=== PATIENT | female | born 1955 | race Caucasian/White ===

== ENCOUNTER 2017-09-12 18:44 | Emergency (ER) | payer MEDICAID ==
[~2017-09-12] VITALS: Ht 154.9 cm; Wt 45.6 kg
[~2017-09-12 18:44] MED LIST: ALBU18HF2 INH; CALC-336 PO; DEP5I IM; DIAZ10TA PO; DIPH25CA83 PO; DOCU100C41 PO; IBUP-1986 PO; LEVO75TA PO; MECL-111 PO; ONDA4TAB6 PO; OXYB5TAB11 PO; PANT-47 PO; PHEN30TA41 PO; POTA8TAB8 PO; TOPI100T18 PO; TRAZ-146 PO; VENL-191 PO
[2017-09-12] MEDS ORDERED: ondansetron/PF 4mg/2ml inj IV ONE (19:50)
[2017-09-12] MEDS ORDERED: normal saline 1000ml 1,000 ML IV ONE (19:50)
[2017-09-12 20:43] LABS: BASOPHILS % (AUTO) 0.3 % (0-1); EOSINOPHILS # (AUTO) 0.2 X10'3 (0-0.9); EOSINOPHILS % (AUTO) 1.9 % (0-6); HEMATOCRIT 41.5 % (35.0-45.0); HEMOGLOBIN 13.9 g/dl (12.0-16.0); LYMPHOCYTES # (AUTO) 2.2 X10'3 (1.1-4.8); LYMPHOCYTES % (AUTO) 25.7 % (21-51); MEAN CORPUSCULAR HGB CONC 33.4 % (33.0-36.5); MEAN CORPUSCULAR VOLUME 95.9 FL (78-98); MEAN PLATELET VOLUME 8.2 FL (7.4-10.4); MONOCYTES # (AUTO) 0.6 X10'3 (0-0.9); MONOCYTES % (AUTO) 7.1 % (2-12); NEUTROPHILS # (AUTO) 5.6 X10'3 (1.8-7.7); PLATELET COUNT 151 X10'3 (140-440); RED BLOOD COUNT 4.33 X10'6 (4.20-5.60); RED CELL DISTRIBUTION WIDTH 13.1 % (11.5-14.5); WHITE BLOOD COUNT 8.7 X10'3 (4.5-11.0)
[2017-09-12 20:54] LABS: PROTHROMBIN TIME 9.9 SECONDS (9.0-12.0)
[2017-09-12] MEDS ORDERED: potassium Cl 20mEq in D5-NS 1,000 ML IV ONE (20:55)
[2017-09-12 21:03] LABS: ALANINE AMINOTRANSFERASE 31 U/L (12-78); ALBUMIN 3.9 G/DL (3.4-5.0); ALKALINE PHOSPHATASE 76 IU/L (46-116); ANION GAP 9 (8-16); ASPARTATE AMINO TRANSFERASE 27 U/L (10-37); BILIRUBIN,TOTAL 0.3 MG/DL (0.1-1.0); BLOOD UREA NITROGEN 15 MG/DL (7-18); BUN/CREATININE RATIO 17.6 (6.6-38.0); CHLORIDE 106 MMOL/L (99-107); CREATININE 0.85 MG/DL (0.40-0.90); GLUCOSE 79 MG/DL (70-104); POTASSIUM 3.8 MMOL/L (3.5-5.1); SODIUM 142 MMOL/L (135-145); TOTAL CARBON DIOXIDE 27.3 MMOL/L (24-32); TOTAL PROTEIN 7.8 G/DL (6.4-8.2); TROPONIN I < 0.04 NG/ML (0.0-0.05); eGFR 67 ML/MIN
[2017-09-12 21:04] LABS: CALCIUM 8.8 MG/DL (8.5-10.1)
[2017-09-12] MEDS ORDERED: ketorolac trometh. 30mg/ml inj. IV ONE (21:10)
[2017-09-12] MEDS ORDERED: METO5TAB98 PO (21:23)
[2017-09-12 21:59] VITALS: BP 94/56
== END 2017-09-12 22:01 | disposition home or self-care (01) ==
LOC: ER 18:45
DX: R11.2 Nausea with vomiting, unspecified (principal); R19.7 Diarrhea, unspecified; G89.29 Other chronic pain; J45.909 Unspecified asthma, uncomplicated; G43.909 Migraine, unspecified, not intractable, without status migrainosus; Z90.49 Acquired absence of other specified parts of digestive tract; Z90.710 Acquired absence of both cervix and uterus; Z98.890 Other specified postprocedural states; Z88.1 Allergy status to other antibiotic agents; Z88.6 Allergy status to analgesic agent; Z88.8 Allergy status to other drugs, medicaments and biological substances; Z79.899 Other long term (current) drug therapy; Z91.048 Other nonmedicinal substance allergy status
CPT/HCPCS: 36415; 80053; 84484; 85025; 85610; 93005; 96361; 96374; 96375; 99285; J1885; J2405; J3480; J7030

== ENCOUNTER → 2017-09-26 | Emergency (ER) | payer MEDICAID ==
[~2017-09-26] VITALS: Ht 154.9 cm; Wt 40.0 kg
[~2017-09-26] MED LIST changes: +HYDROmorphone 1 mg/ml syringe IM ONE; +METO5TAB98 PO
[2017-09-26 15:25] VITALS: BP 104/61
== END | disposition home or self-care (01) ==
LOC: ER 13:05
DX: G89.29 Other chronic pain (principal); M54.5 Low back pain; J45.909 Unspecified asthma, uncomplicated; G43.909 Migraine, unspecified, not intractable, without status migrainosus; M19.90 Unspecified osteoarthritis, unspecified site; Z90.49 Acquired absence of other specified parts of digestive tract; Z90.710 Acquired absence of both cervix and uterus; Z98.890 Other specified postprocedural states; Z88.1 Allergy status to other antibiotic agents; Z88.6 Allergy status to analgesic agent; Z88.8 Allergy status to other drugs, medicaments and biological substances; Z79.899 Other long term (current) drug therapy
CPT/HCPCS: 96372; 99284; J1170

== ENCOUNTER 2018-02-11 22:42 | Emergency (ER) | payer MEDICAID ==
[~2018-02-11] VITALS: Ht 154.9 cm; Wt 46.5 kg
[~2018-02-11 22:42] MED LIST changes: -HYDROmorphone 1 mg/ml syringe IM ONE; -METO5TAB98 PO
[2018-02-11] MEDS ORDERED: morphine 4 MG/ML inj SYRINge IV ONE (22:55)
[2018-02-11] MEDS ORDERED: ondansetron/PF 4mg/2ml inj IV ONE (22:55)
[2018-02-11] MEDS ORDERED: normal saline 1000ml 1,000 ML IV ONE (22:55)
[2018-02-11 23:41] LABS: BASOPHILS % (AUTO) 0.6 % (0-1); EOSINOPHILS # (AUTO) 0.1 X10'3 (0-0.9); EOSINOPHILS % (AUTO) 1.2 % (0-6); HEMATOCRIT 34.1 % (35.0-45.0); HEMOGLOBIN 11.7 g/dl (12.0-16.0); LYMPHOCYTES # (AUTO) 1.6 X10'3 (1.1-4.8); LYMPHOCYTES % (AUTO) 23.7 % (21-51); MEAN CORPUSCULAR HEMOGLOBIN 31.7 PG (27.0-31.0); MEAN CORPUSCULAR HGB CONC 34.3 % (33.0-36.5); MEAN CORPUSCULAR VOLUME 92.4 FL (78-98); MEAN PLATELET VOLUME 7.6 FL (7.4-10.4); MONOCYTES # (AUTO) 0.4 X10'3 (0-0.9); MONOCYTES % (AUTO) 5.8 % (2-12); NEUTROPHILS # (AUTO) 4.8 X10'3 (1.8-7.7); NEUTROPHILS % (AUTO) 68.7 % (42-75); PLATELET COUNT 156 X10'3 (140-440); RED BLOOD COUNT 3.69 X10'6 (4.20-5.60); RED CELL DISTRIBUTION WIDTH 12.6 % (11.5-14.5); WHITE BLOOD COUNT 6.9 X10'3 (4.5-11.0)
[2018-02-11 23:55] LABS: ALANINE AMINOTRANSFERASE 30 U/L (12-78); ALBUMIN 3.4 G/DL (3.4-5.0); ALBUMIN/GLOBULIN RATIO 0.9 (1.1-1.5); ALKALINE PHOSPHATASE 75 IU/L (46-116); AMYLASE 44 U/L (25-115); ANION GAP 9 (8-16); ASPARTATE AMINO TRANSFERASE 20 U/L (10-37); BILIRUBIN,TOTAL 0.3 MG/DL (0.1-1.0); BLOOD UREA NITROGEN 19 MG/DL (7-18); BUN/CREATININE RATIO 20.9 (6.6-38.0); CALCIUM 8.4 MG/DL (8.5-10.1); CHLORIDE 102 MMOL/L (99-107); CREATININE 0.91 MG/DL (0.40-0.90); GLUCOSE 82 MG/DL (70-104); LIPASE 108 U/L (73-393); POTASSIUM 3.5 MMOL/L (3.5-5.1); SODIUM 139 MMOL/L (135-145); TOTAL PROTEIN 7.4 G/DL (6.4-8.2); eGFR 62 ML/MIN
[2018-02-12 01:01] LABS: CLARITY,URINE SLIGHTLY CLOUDY (Clear); COLOR,URINE YELLOW (Yellow); GLUCOSE, URINE NEGATIVE (Neg); KETONES,URINE NEGATIVE (Neg); LEUKOCYTE ESTERASE ,URINE TRACE (Neg); NITRITES, URINE POSITIVE (Neg); OCCULT BLOOD,URINE NEGATIVE (Neg); PH,URINE 6.5 (4.8-8.0); PROTEIN,URINE NEGATIVE (Neg); UROBILINOGEN,URINE 0.2 E.U/dL (0.2-1.0)
[2018-02-12 01:08] LABS: BACTERIA,URINE 4+ /HPF (Neg); SQUAMOUS EPITHELIAL CELL,UR MODERATE /LPF (FEW); UA COLLECTION TYPE STRAIGHT CATH
[2018-02-12 01:09] LABS: RBC,URINE NONE SEEN /HPF (0-2)
[2018-02-12] MEDS ORDERED: CIPR-259 PO (01:44)
[2018-02-12] MEDS ORDERED: HYDROcodone/acetaminophen 10/325mg tab PO ONE (01:45)
[2018-02-12 01:54] VITALS: BP 106/57
== END 2018-02-12 01:59 | disposition home or self-care (01) ==
LOC: ER 22:42
DX: N39.0 Urinary tract infection, site not specified (principal); G43.909 Migraine, unspecified, not intractable, without status migrainosus; J45.909 Unspecified asthma, uncomplicated; M19.90 Unspecified osteoarthritis, unspecified site; G89.29 Other chronic pain; Z90.49 Acquired absence of other specified parts of digestive tract; Z90.710 Acquired absence of both cervix and uterus; Z98.890 Other specified postprocedural states; Z88.1 Allergy status to other antibiotic agents; Z88.8 Allergy status to other drugs, medicaments and biological substances; Z79.899 Other long term (current) drug therapy
CPT/HCPCS: 36415; 80053; 81001; 82150; 83690; 85025; 85610; 85651; 87088; 96361; 96374; 96375; 99284; J2270; J2405; 87077; 87186

== ENCOUNTER 2018-03-15 14:49 | Emergency (ER) | payer MEDICAID ==
[~2018-03-15] VITALS: Ht 154.9 cm; Wt 45.5 kg
[2018-03-15 15:17] VITALS: BP 137/70
== END 2018-03-15 16:58 | disposition home or self-care (01) ==
LOC: ER 14:50
DX: G89.29 Other chronic pain (principal); M54.2 Cervicalgia; G43.909 Migraine, unspecified, not intractable, without status migrainosus; J45.909 Unspecified asthma, uncomplicated; M19.90 Unspecified osteoarthritis, unspecified site; M79.7 Fibromyalgia; Z90.49 Acquired absence of other specified parts of digestive tract; Z90.710 Acquired absence of both cervix and uterus; Z98.51 Tubal ligation status; Z98.890 Other specified postprocedural states; Z88.1 Allergy status to other antibiotic agents; Z88.8 Allergy status to other drugs, medicaments and biological substances; Z88.6 Allergy status to analgesic agent; Z79.899 Other long term (current) drug therapy
CPT/HCPCS: 99284

== ENCOUNTER 2018-08-06 13:51 | Emergency (ER) | payer MEDICARE, MEDICAID ==
[~2018-08-06] VITALS: Ht 154.9 cm; Wt 46.1 kg
[~2018-08-06 13:51] MED LIST changes: +CLON-528 PO; -DIAZ10TA PO; -IBUP-1986 PO; +MORP30TA PO; -ONDA4TAB6 PO; -TRAZ-146 PO; +TRAZ-219 PO
[2018-08-06 14:34] LABS: BASOPHILS % (AUTO) 0.3 % (0-1); EOSINOPHILS # (AUTO) 0.1 X10'3 (0-0.9); EOSINOPHILS % (AUTO) 1.1 % (0-6); HEMATOCRIT 36.3 % (35.0-45.0); HEMOGLOBIN 12.3 g/dl (12.0-16.0); LYMPHOCYTES # (AUTO) 1.7 X10'3 (1.1-4.8); LYMPHOCYTES % (AUTO) 23.7 % (21-51); MEAN CORPUSCULAR HEMOGLOBIN 31.9 PG (27.0-31.0); MEAN CORPUSCULAR HGB CONC 33.8 % (33.0-36.5); MEAN CORPUSCULAR VOLUME 94.6 FL (78-98); MEAN PLATELET VOLUME 7.5 FL (7.4-10.4); MONOCYTES # (AUTO) 0.4 X10'3 (0-0.9); MONOCYTES % (AUTO) 6.2 % (2-12); NEUTROPHILS % (AUTO) 68.7 % (42-75); PLATELET COUNT 208 X10'3 (140-440); RED BLOOD COUNT 3.84 X10'6 (4.20-5.60); RED CELL DISTRIBUTION WIDTH 13.6 % (11.5-14.5); WHITE BLOOD COUNT 7.2 X10'3 (4.5-11.0)
[2018-08-06 14:50] LABS: ALANINE AMINOTRANSFERASE 33 U/L (12-78); ALBUMIN 3.7 G/DL (3.4-5.0); ALBUMIN/GLOBULIN RATIO 0.9 (1.1-1.5); ALKALINE PHOSPHATASE 102 IU/L (46-116); ANION GAP 12 (8-16); ASPARTATE AMINO TRANSFERASE 20 U/L (10-37); BILIRUBIN,TOTAL 0.2 MG/DL (0.1-1.0); BLOOD UREA NITROGEN 14 MG/DL (7-18); BUN/CREATININE RATIO 16.1 (6.6-38.0); CALCIUM 8.8 MG/DL (8.5-10.1); CHLORIDE 105 MMOL/L (99-107); CREATININE 0.87 MG/DL (0.40-0.90); GLUCOSE 84 MG/DL (70-104); LIPASE 124 U/L (73-393); POTASSIUM 3.6 MMOL/L (3.5-5.1); SODIUM 142 MMOL/L (135-145); TOTAL CARBON DIOXIDE 25.3 MMOL/L (24-32); TOTAL PROTEIN 7.8 G/DL (6.4-8.2); eGFR 65 ML/MIN
[2018-08-06] MEDS ORDERED: normal saline 1000ML IV soln IVB ONE (16:25)
[2018-08-06] MEDS ORDERED: pantoprazole 40 MG vial IV ONE (16:25)
[2018-08-06] MEDS ORDERED: ondansetron/PF 4mg/2ml inj IV ONE (16:25)
[2018-08-06] MEDS ORDERED: famotidine/PF 10 mg/ml inj IV ONE (16:25)
[2018-08-06] MEDS ORDERED: ketorolac trometh. 30mg/ml inj. IV ONE (18:05)
[2018-08-06] MEDS ORDERED: morphine 4 MG/ML inj SYRINge IV ONE (18:05)
[2018-08-06] MEDS ORDERED: ONDA8TAB9 PO (18:22)
[2018-08-06 18:29] VITALS: BP 130/65
[2018-08-06] MEDS ORDERED: mag hydrox/Alum hydrox/simeth 30ml oral suspension PO ONE (18:30)
[2018-08-06 19:29] LABS: CLARITY,URINE CLEAR (Clear); COLOR,URINE YELLOW (Yellow); GLUCOSE, URINE NEGATIVE (Neg); KETONES,URINE NEGATIVE (Neg); LEUKOCYTE ESTERASE ,URINE NEGATIVE (Neg); NITRITES, URINE NEGATIVE (Neg); OCCULT BLOOD,URINE NEGATIVE (Neg); PROTEIN,URINE NEGATIVE (Neg); UA COLLECTION TYPE CLN CATCH MIDSTREAM; UROBILINOGEN,URINE 0.2 E.U/dL (0.2-1.0)
== END 2018-08-07 | disposition home or self-care (01) ==
LOC: ER 13:52
DX: K52.9 Noninfective gastroenteritis and colitis, unspecified (principal); G43.909 Migraine, unspecified, not intractable, without status migrainosus; J44.9 Chronic obstructive pulmonary disease, unspecified; M19.90 Unspecified osteoarthritis, unspecified site; G89.29 Other chronic pain; Z90.49 Acquired absence of other specified parts of digestive tract; Z90.710 Acquired absence of both cervix and uterus; Z98.890 Other specified postprocedural states; Z90.89 Acquired absence of other organs; Z98.51 Tubal ligation status; Z88.1 Allergy status to other antibiotic agents; Z88.6 Allergy status to analgesic agent; Z88.8 Allergy status to other drugs, medicaments and biological substances; Z79.2 Long term (current) use of antibiotics; Z79.899 Other long term (current) drug therapy
CPT/HCPCS: 36415; 74176; 80053; 81003; 83690; 85025; 85610; 96361; 96374; 96375; 99284; C9113; J1885; J2270; J2405; J3490; J7030

== ENCOUNTER 2018-09-04 17:10 | Emergency (ER) | payer MEDICARE, MEDICAID ==
[~2018-09-04] VITALS: Ht 154.9 cm; Wt 41.8 kg
[~2018-09-04 17:10] MED LIST changes: +ONDA8TAB9 PO
[2018-09-04 18:09] LABS: BASOPHILS % (AUTO) 0.4 % (0-1); EOSINOPHILS # (AUTO) 0.2 X10'3 (0-0.9); EOSINOPHILS % (AUTO) 2.6 % (0-6); HEMATOCRIT 39.1 % (35.0-45.0); HEMOGLOBIN 12.8 g/dl (12.0-16.0); LYMPHOCYTES % (AUTO) 32.9 % (21-51); MEAN CORPUSCULAR HEMOGLOBIN 31.4 PG (27.0-31.0); MEAN CORPUSCULAR HGB CONC 32.7 % (33.0-36.5); MEAN PLATELET VOLUME 7.8 FL (7.4-10.4); MONOCYTES # (AUTO) 0.3 X10'3 (0-0.9); MONOCYTES % (AUTO) 4.5 % (2-12); NEUTROPHILS # (AUTO) 3.5 X10'3 (1.8-7.7); NEUTROPHILS % (AUTO) 59.6 % (42-75); PLATELET COUNT 161 X10'3 (140-440); RED BLOOD COUNT 4.07 X10'6 (4.20-5.60); RED CELL DISTRIBUTION WIDTH 12.3 % (11.5-14.5)
[2018-09-04 18:31] LABS: ALANINE AMINOTRANSFERASE 32 U/L (12-78); ALBUMIN 3.6 G/DL (3.4-5.0); ALBUMIN/GLOBULIN RATIO 0.9 (1.1-1.5); ALKALINE PHOSPHATASE 87 IU/L (46-116); ANION GAP 9 (8-16); ASPARTATE AMINO TRANSFERASE 19 U/L (10-37); BILIRUBIN,TOTAL 0.2 MG/DL (0.1-1.0); BLOOD UREA NITROGEN 16 MG/DL (7-18); BUN/CREATININE RATIO 21.1 (6.6-38.0); CALCIUM 8.6 MG/DL (8.5-10.1); CHLORIDE 106 MMOL/L (99-107); CREATININE 0.76 MG/DL (0.40-0.90); GLUCOSE 76 MG/DL (70-104); LIPASE 140 U/L (73-393); POTASSIUM 4.1 MMOL/L (3.5-5.1); SODIUM 142 MMOL/L (135-145); TOTAL CARBON DIOXIDE 26.8 MMOL/L (24-32); TOTAL PROTEIN 7.7 G/DL (6.4-8.2); eGFR 76 ML/MIN
[2018-09-04 18:40] LABS: CLARITY,URINE SLIGHTLY CLOUDY (Clear); COLOR,URINE YELLOW (Yellow); GLUCOSE, URINE NEGATIVE (Neg); KETONES,URINE NEGATIVE (Neg); LEUKOCYTE ESTERASE ,URINE NEGATIVE (Neg); NITRITES, URINE NEGATIVE (Neg); OCCULT BLOOD,URINE NEGATIVE (Neg); PROTEIN,URINE NEGATIVE (Neg); UROBILINOGEN,URINE 0.2 E.U/dL (0.2-1.0)
[2018-09-04 18:43] LABS: UA COLLECTION TYPE STRAIGHT CATH
[2018-09-04 19:00] LABS: MUCUS STRANDS MODERATE /LPF (Neg); RBC,URINE 0-2 /HPF (0-2); SQUAMOUS EPITHELIAL CELL,UR MANY /LPF (FEW); WBC,URINE 0-4 /HPF (0-4)
[2018-09-04 19:03] LABS: AMORPHOUS URATES 1+; BACTERIA,URINE FEW /HPF (Neg)
[2018-09-04] MEDS ORDERED: normal saline 1000ML IV soln IVB ONE (19:15)
[2018-09-04 19:38] LABS: TROPONIN I < 0.04 NG/ML (0.0-0.05)
[2018-09-04] MEDS ORDERED: acetaminophen 325mg tablet PO ONE (20:55)
[2018-09-04 21:17] VITALS: BP 108/57
--- NOTE | 2018-09-04 21:43 | NUR ---
PT PAYING FOR A CAB TO TAKE HER HOME. [employer] CALLED AND PT NOW INI LOBBY WAITING
== END 2018-09-04 21:53 | disposition home or self-care (01) ==
LOC: ER 17:10
DX: M79.604 Pain in right leg (principal); M79.605 Pain in left leg; R11.10 Vomiting, unspecified; G43.909 Migraine, unspecified, not intractable, without status migrainosus; J44.9 Chronic obstructive pulmonary disease, unspecified; M19.90 Unspecified osteoarthritis, unspecified site; G89.29 Other chronic pain; Z90.49 Acquired absence of other specified parts of digestive tract; Z90.710 Acquired absence of both cervix and uterus; Z98.890 Other specified postprocedural states; Z90.89 Acquired absence of other organs; Z98.51 Tubal ligation status; Z88.1 Allergy status to other antibiotic agents; Z88.6 Allergy status to analgesic agent; Z88.8 Allergy status to other drugs, medicaments and biological substances; Z79.899 Other long term (current) drug therapy; W19.XXXA Unspecified fall, initial encounter; Y93.89 Activity, other specified; Y92.89 Other specified places as the place of occurrence of the external cause; Y99.8 Other external cause status
CPT/HCPCS: 36415; 80053; 81001; 83690; 83735; 84484; 85025; 96360; 99283; J7030; P9612

== ENCOUNTER 2019-01-27 21:01 | Emergency (ER) | payer MEDICARE, MEDICAID ==
[~2019-01-27] VITALS: Ht 154.9 cm; Wt 44.5 kg
[~2019-01-27 21:01] MED LIST changes: +LOPE2TAB25 PO; +TOP100T PO; -TOPI100T18 PO
[2019-01-27 23:06] LABS: BASOPHILS % (AUTO) 0.6 % (0-1); EOSINOPHILS # (AUTO) 0.2 X10'3 (0-0.9); EOSINOPHILS % (AUTO) 2.5 % (0-6); HEMATOCRIT 35.9 % (35.0-45.0); HEMOGLOBIN 12.4 g/dl (12.0-16.0); LYMPHOCYTES # (AUTO) 1.7 X10'3 (1.1-4.8); LYMPHOCYTES % (AUTO) 24.4 % (21-51); MEAN CORPUSCULAR HEMOGLOBIN 32.6 PG (27.0-31.0); MEAN CORPUSCULAR HGB CONC 34.5 g/dL (33.0-36.5); MEAN CORPUSCULAR VOLUME 94.4 FL (78-98); MEAN PLATELET VOLUME 7.8 FL (7.4-10.4); MONOCYTES # (AUTO) 0.5 X10'3 (0-0.9); MONOCYTES % (AUTO) 7.3 % (2-12); NEUTROPHILS # (AUTO) 4.5 X10'3 (1.8-7.7); NEUTROPHILS % (AUTO) 65.2 % (42-75); PLATELET COUNT 174 X10'3 (140-440); RED BLOOD COUNT 3.81 X10'6 (4.20-5.60); RED CELL DISTRIBUTION WIDTH 12.6 % (11.5-14.5); WHITE BLOOD COUNT 6.9 X10'3 (4.5-11.0)
[2019-01-27 23:20] LABS: ALANINE AMINOTRANSFERASE 27 U/L (12-78); ALBUMIN 3.2 G/DL (3.4-5.0); ALBUMIN/GLOBULIN RATIO 0.9 (1.1-1.5); ALKALINE PHOSPHATASE 79 IU/L (46-116); ANION GAP 6 (8-16); ASPARTATE AMINO TRANSFERASE 21 U/L (10-37); BILIRUBIN,TOTAL 0.1 MG/DL (0.1-1.0); BLOOD UREA NITROGEN 17 MG/DL (7-18); BUN/CREATININE RATIO 20.2 (6.6-38.0); CALCIUM 8.4 MG/DL (8.5-10.1); CHLORIDE 107 MMOL/L (99-107); CREATININE 0.84 MG/DL (0.40-0.90); GLUCOSE 98 MG/DL (70-104); POTASSIUM 3.4 MMOL/L (3.5-5.1); SODIUM 140 MMOL/L (135-145); TOTAL CARBON DIOXIDE 26.6 MMOL/L (24-32); TOTAL PROTEIN 6.9 G/DL (6.4-8.2); eGFR 68 ML/MIN
[2019-01-27 23:59] VITALS: BP 137/84
== END 2019-01-28 00:01 | disposition home or self-care (01) ==
LOC: ER 21:03
DX: S00.83XA Contusion of other part of head, initial encounter (principal); G43.909 Migraine, unspecified, not intractable, without status migrainosus; J44.9 Chronic obstructive pulmonary disease, unspecified; M19.90 Unspecified osteoarthritis, unspecified site; G89.29 Other chronic pain; M79.7 Fibromyalgia; Z90.49 Acquired absence of other specified parts of digestive tract; Z90.710 Acquired absence of both cervix and uterus; Z98.890 Other specified postprocedural states; Z98.51 Tubal ligation status; Z88.1 Allergy status to other antibiotic agents; Z88.8 Allergy status to other drugs, medicaments and biological substances; Z88.6 Allergy status to analgesic agent; Z79.899 Other long term (current) drug therapy; W01.198A Fall on same level from slipping, tripping and stumbling with subsequent striking against other object, initial encounter; Y93.89 Activity, other specified; Y92.89 Other specified places as the place of occurrence of the external cause; Y99.9 Unspecified external cause status
CPT/HCPCS: 36415; 70450; 80053; 83880; 85025; 99284

== ENCOUNTER 2019-04-09 18:35 | Emergency (ER) | payer MEDICARE, MEDICAID ==
[~2019-04-09] VITALS: Ht 154.9 cm; Wt 47.7 kg
[~2019-04-09 18:35] MED LIST changes: -OXYB5TAB11 PO; +OXYB5TAB16 PO
[2019-04-09 19:10] LABS: BASOPHILS % (AUTO) 0.6 % (0-1); EOSINOPHILS # (AUTO) 0.1 X10'3 (0-0.9); EOSINOPHILS % (AUTO) 2.6 % (0-6); HEMATOCRIT 37.5 % (35.0-45.0); HEMOGLOBIN 12.8 g/dl (12.0-16.0); LYMPHOCYTES # (AUTO) 1.7 X10'3 (1.1-4.8); LYMPHOCYTES % (AUTO) 33.7 % (21-51); MEAN CORPUSCULAR HEMOGLOBIN 32.6 PG (27.0-31.0); MEAN PLATELET VOLUME 7.8 FL (7.4-10.4); MONOCYTES # (AUTO) 0.4 X10'3 (0-0.9); MONOCYTES % (AUTO) 7.9 % (2-12); NEUTROPHILS # (AUTO) 2.8 X10'3 (1.8-7.7); NEUTROPHILS % (AUTO) 55.2 % (42-75); PLATELET COUNT 148 X10'3 (140-440); RED BLOOD COUNT 3.91 X10'6 (4.20-5.60); WHITE BLOOD COUNT 5.1 X10'3 (4.5-11.0)
[2019-04-09 19:19] LABS: ALANINE AMINOTRANSFERASE 26 U/L (12-78); ALBUMIN 3.5 G/DL (3.4-5.0); ALBUMIN/GLOBULIN RATIO 0.9 (1.1-1.5); ALKALINE PHOSPHATASE 84 IU/L (46-116); ANION GAP 8 (8-16); ASPARTATE AMINO TRANSFERASE 15 U/L (10-37); BILIRUBIN,TOTAL 0.3 MG/DL (0.1-1.0); BLOOD UREA NITROGEN 22 MG/DL (7-18); BUN/CREATININE RATIO 22.7 (6.6-38.0); CALCIUM 8.7 MG/DL (8.5-10.1); CHLORIDE 106 MMOL/L (99-107); CREATININE 0.97 MG/DL (0.40-0.90); GLUCOSE 76 MG/DL (70-104); POTASSIUM 3.5 MMOL/L (3.5-5.1); SODIUM 142 MMOL/L (135-145); TOTAL CARBON DIOXIDE 28.2 MMOL/L (24-32); TOTAL PROTEIN 7.5 G/DL (6.4-8.2); eGFR 57 ML/MIN
[2019-04-09] MEDS ORDERED: LIDOcaine Viscous 15ml cup PO ONE (19:50)
[2019-04-09] MEDS ORDERED: normal saline 1000ML IV soln IVB ONE (19:50)
[2019-04-09] MEDS ORDERED: ondansetron 4mg rapidly disintigrating tab PO ONE (19:50)
[2019-04-09] MEDS ORDERED: mag hydrox/Alum hydrox/simeth 30ml oral suspension PO ONE (19:50)
--- NOTE | 2019-04-09 19:58 | NUR ---
pt is resting quietly on gurney, resp even and unlabored,
[2019-04-09] MEDS ORDERED: PROC25SU31 RC (20:30)
[2019-04-09 20:36] LABS: COLOR,URINE YELLOW (Yellow); GLUCOSE, URINE NEGATIVE (Neg); KETONES,URINE NEGATIVE (Neg); LEUKOCYTE ESTERASE ,URINE NEGATIVE (Neg); NITRITES, URINE NEGATIVE (Neg); OCCULT BLOOD,URINE NEGATIVE (Neg); PROTEIN,URINE NEGATIVE (Neg); UROBILINOGEN,URINE 0.2 E.U/dL (0.2-1.0)
[2019-04-09 20:42] LABS: UA COLLECTION TYPE CLN CATCH MIDSTREAM
[2019-04-09 20:45] LABS: CLARITY,URINE CLEAR (Clear)
--- NOTE | 2019-04-09 20:47 | NUR ---
PT IS RESTING QUIETLY, RECEIVING 1ST LITER NS W/O
[2019-04-09] MEDS ORDERED: HYDROcodone/acetaminophen 5mg/325mg tablet PO ONE (21:00)
--- NOTE | 2019-04-09 21:16 | NUR ---
PT REFUSED KAIDEN "THAT DOESN'T WORK FOR ME"
[2019-04-09 22:12] VITALS: BP 105/50
== END 2019-04-09 22:14 | disposition home or self-care (01) ==
LOC: ER 18:36
DX: R11.2 Nausea with vomiting, unspecified (principal); R10.13 Epigastric pain; G43.909 Migraine, unspecified, not intractable, without status migrainosus; J44.9 Chronic obstructive pulmonary disease, unspecified; E03.9 Hypothyroidism, unspecified; M19.90 Unspecified osteoarthritis, unspecified site; G89.29 Other chronic pain; F41.9 Anxiety disorder, unspecified; F32.9 Major depressive disorder, single episode, unspecified; Z90.49 Acquired absence of other specified parts of digestive tract; Z90.710 Acquired absence of both cervix and uterus; Z98.890 Other specified postprocedural states; Z98.51 Tubal ligation status; Z88.2 Allergy status to sulfonamides; Z88.8 Allergy status to other drugs, medicaments and biological substances; Z79.899 Other long term (current) drug therapy
CPT/HCPCS: 36415; 80053; 81003; 85025; 85610; 96360; 99284; J2405; J7030; 96372; 99283

== ENCOUNTER 2019-04-25 16:53 | Emergency (ER) | payer MEDICARE, MEDICAID ==
[~2019-04-25] VITALS: Ht 154.9 cm; Wt 46.0 kg
[2019-04-25] MEDS ORDERED: normal saline 1000ML IV soln IVB ONE (17:10)
[2019-04-25] MEDS ORDERED: diphenhydrAMINE 50 mg/ml inj IV ONE (17:10)
[2019-04-25] MEDS ORDERED: metoclopramide 5 mg/ml inj IV ONE (17:10)
[2019-04-25 17:23] LABS: BASOPHILS % (AUTO) 0.6 % (0-1); EOSINOPHILS # (AUTO) 0.1 X10'3 (0-0.9); EOSINOPHILS % (AUTO) 2.4 % (0-6); HEMATOCRIT 35.8 % (35.0-45.0); LYMPHOCYTES # (AUTO) 1.5 X10'3 (1.1-4.8); MEAN CORPUSCULAR HGB CONC 33.6 g/dL (33.0-36.5); MEAN CORPUSCULAR VOLUME 98.1 FL (78-98); MEAN PLATELET VOLUME 7.6 FL (7.4-10.4); MONOCYTES # (AUTO) 0.4 X10'3 (0-0.9); MONOCYTES % (AUTO) 8.6 % (2-12); NEUTROPHILS # (AUTO) 2.8 X10'3 (1.8-7.7); NEUTROPHILS % (AUTO) 57.4 % (42-75); PLATELET COUNT 181 X10'3 (140-440); RED BLOOD COUNT 3.65 X10'6 (4.20-5.60); RED CELL DISTRIBUTION WIDTH 13.1 % (11.5-14.5); WHITE BLOOD COUNT 4.9 X10'3 (4.5-11.0)
[2019-04-25 17:39] LABS: ALANINE AMINOTRANSFERASE 27 U/L (12-78); ALBUMIN 3.3 G/DL (3.4-5.0); ALBUMIN/GLOBULIN RATIO 0.9 (1.1-1.5); ALKALINE PHOSPHATASE 70 IU/L (46-116); ANION GAP 6 (8-16); ASPARTATE AMINO TRANSFERASE 17 U/L (10-37); BILIRUBIN,TOTAL 0.2 MG/DL (0.1-1.0); BLOOD UREA NITROGEN 18 MG/DL (7-18); BUN/CREATININE RATIO 19.4 (6.6-38.0); CALCIUM 8.4 MG/DL (8.5-10.1); CHLORIDE 109 MMOL/L (99-107); CREATININE 0.93 MG/DL (0.40-0.90); GLUCOSE 88 MG/DL (70-104); POTASSIUM 3.7 MMOL/L (3.5-5.1); SODIUM 145 MMOL/L (135-145); TOTAL CARBON DIOXIDE 29.9 MMOL/L (24-32); eGFR 60 ML/MIN
[2019-04-25 18:14] LABS: LIPASE 203 U/L (73-393)
[2019-04-25 19:00] LABS: CLARITY,URINE CLEAR (Clear); COLOR,URINE YELLOW (Yellow); GLUCOSE, URINE NEGATIVE (Neg); KETONES,URINE NEGATIVE (Neg); LEUKOCYTE ESTERASE ,URINE NEGATIVE (Neg); NITRITES, URINE NEGATIVE (Neg); OCCULT BLOOD,URINE NEGATIVE (Neg); PROTEIN,URINE NEGATIVE (Neg); UROBILINOGEN,URINE 0.2 E.U/dL (0.2-1.0)
[2019-04-25 19:02] LABS: UA COLLECTION TYPE VOIDED
[2019-04-25 19:03] LABS: URINE HCG NEGATIVE (NEG)
[2019-04-25] MEDS ORDERED: morphine 4 MG/ML inj SYRINge IV ONE (19:20)
[2019-04-25] MEDS ORDERED: ONDA4TAB12 PO (19:32)
--- NOTE | 2019-04-25 19:43 | NUR ---
updated ohlfs md of pt bp 100/51 and 8 mg morphine iv ordered. Ohlfs changed morphine from 8 mg to 4 gm.
[2019-04-25 19:45] VITALS: BP 100/51
== END 2019-04-25 20:14 | disposition home or self-care (01) ==
LOC: ER 16:53
DX: R10.32 Left lower quadrant pain (principal); G43.909 Migraine, unspecified, not intractable, without status migrainosus; J44.9 Chronic obstructive pulmonary disease, unspecified; E07.9 Disorder of thyroid, unspecified; M19.90 Unspecified osteoarthritis, unspecified site; G89.29 Other chronic pain; F41.9 Anxiety disorder, unspecified; F32.9 Major depressive disorder, single episode, unspecified; Z90.49 Acquired absence of other specified parts of digestive tract; Z90.710 Acquired absence of both cervix and uterus; Z98.890 Other specified postprocedural states; Z98.51 Tubal ligation status; Z88.1 Allergy status to other antibiotic agents; Z88.6 Allergy status to analgesic agent; Z88.8 Allergy status to other drugs, medicaments and biological substances; Z79.899 Other long term (current) drug therapy
CPT/HCPCS: 36415; 80053; 81003; 81025; 83690; 85025; 85610; 96361; 96374; 96375; 99283; J1200; J2270; J2765; J7030

== ENCOUNTER 2019-08-18 10:45 | Emergency (ER) | payer MEDICARE, MEDICAID ==
[~2019-08-18] VITALS: Ht 154.9 cm; Wt 45.9 kg
[~2019-08-18 10:45] MED LIST changes: +ONDA4TAB12 PO
[2019-08-18 11:27] LABS: EOSINOPHILS # (AUTO) 0.1 X10'3 (0-0.9); HEMOGLOBIN 13.8 g/dl (12.0-16.0); MONOCYTES # (AUTO) 0.5 X10'3 (0-0.9); NEUTROPHILS # (AUTO) 5.4 X10'3 (1.8-7.7)
[2019-08-18 11:29] LABS: BASOPHILS % (AUTO) 0.5 % (0-1); EOSINOPHILS % (AUTO) 1.5 % (0-6); LYMPHOCYTES # (AUTO) 1.7 X10'3 (1.1-4.8); LYMPHOCYTES % (AUTO) 22.1 % (21-51); MEAN CORPUSCULAR HEMOGLOBIN 33.4 PG (27.0-31.0); MEAN CORPUSCULAR HGB CONC 34.4 g/dL (33.0-36.5); MEAN CORPUSCULAR VOLUME 97.2 FL (78-98); MEAN PLATELET VOLUME 8.6 FL (7.4-10.4); MONOCYTES % (AUTO) 6.9 % (2-12); PLATELET COUNT 162 X10'3 (140-440); RED BLOOD COUNT 4.11 X10'6 (4.20-5.60); RED CELL DISTRIBUTION WIDTH 13.3 % (11.5-14.5); WHITE BLOOD COUNT 7.8 X10'3 (4.5-11.0)
[2019-08-18 11:34] LABS: ALANINE AMINOTRANSFERASE 129 U/L (12-78); ALBUMIN 3.6 G/DL (3.4-5.0); ALKALINE PHOSPHATASE 86 IU/L (46-116); ANION GAP 7 (8-16); ASPARTATE AMINO TRANSFERASE 275 U/L (10-37); BILIRUBIN,TOTAL 0.3 MG/DL (0.1-1.0); BLOOD UREA NITROGEN 13 MG/DL (7-18); BUN/CREATININE RATIO 15.5 (6.6-38.0); CALCIUM 8.7 MG/DL (8.5-10.1); CHLORIDE 108 MMOL/L (99-107); CREATININE 0.84 MG/DL (0.40-0.90); GLUCOSE 80 MG/DL (70-104); SODIUM 144 MMOL/L (135-145); TOTAL CARBON DIOXIDE 29.4 MMOL/L (24-32); TOTAL PROTEIN 7.3 G/DL (6.4-8.2); eGFR 68 ML/MIN
[2019-08-18 11:36] LABS: POTASSIUM 3.8 MMOL/L (3.5-5.1)
[2019-08-18] MEDS ORDERED: ondansetron/PF 4mg/2ml inj IV ONE (11:50)
[2019-08-18] MEDS ORDERED: normal saline 1000ML IV soln IVB ONE (11:50)
[2019-08-18 12:09] LABS: LIPASE 8328 U/L (73-393)
[2019-08-18] MEDS ORDERED: iohexol 300mg/ml 100ml inj. ONE (12:49)
[2019-08-18 13:49] LABS: CLARITY,URINE CLEAR (Clear); COLOR,URINE STRAW (Yellow); GLUCOSE, URINE NEGATIVE (Neg); KETONES,URINE NEGATIVE (Neg); LEUKOCYTE ESTERASE ,URINE NEGATIVE (Neg); NITRITES, URINE NEGATIVE (Neg); OCCULT BLOOD,URINE NEGATIVE (Neg); PROTEIN,URINE NEGATIVE (Neg); UA COLLECTION TYPE CLN CATCH MIDSTREAM; UROBILINOGEN,URINE 0.2 E.U/dL (0.2-1.0)
[2019-08-18] MEDS ORDERED: ONDA4TAB6 PO (14:14)
[2019-08-18] MEDS ORDERED: morphine 4 MG/ML inj SYRINge IV ONE (14:30)
[2019-08-18] MEDS ORDERED: HYDR-4383 PO (14:33)
[2019-08-18 14:48] VITALS: BP 112/76
[2019-08-18] MEDS ORDERED: OMEP40CA13 PO (14:55)
== END 2019-08-18 14:57 | disposition home or self-care (01) ==
LOC: ER 10:45
DX: K52.9 Noninfective gastroenteritis and colitis, unspecified (principal); G43.909 Migraine, unspecified, not intractable, without status migrainosus; J44.9 Chronic obstructive pulmonary disease, unspecified; M19.90 Unspecified osteoarthritis, unspecified site; G89.29 Other chronic pain; M79.7 Fibromyalgia; F41.9 Anxiety disorder, unspecified; F32.9 Major depressive disorder, single episode, unspecified; Z88.1 Allergy status to other antibiotic agents; Z88.8 Allergy status to other drugs, medicaments and biological substances; Z79.899 Other long term (current) drug therapy; Z91.030 Bee allergy status; Z87.19 Personal history of other diseases of the digestive system; Z90.49 Acquired absence of other specified parts of digestive tract; Z90.710 Acquired absence of both cervix and uterus; Z98.890 Other specified postprocedural states; Z90.89 Acquired absence of other organs; Z98.51 Tubal ligation status; Z87.442 Personal history of urinary calculi
CPT/HCPCS: 36415; 74177; 80053; 81003; 83690; 85025; 85610; 86709; 96361; 96374; 96375; 99284; J2270; J2405; J7030; Q9967

== ENCOUNTER 2019-10-08 19:43 | Emergency (ER) | payer MEDICARE, MEDICAID ==
[~2019-10-08] VITALS: Ht 154.9 cm; Wt 47.0 kg
[~2019-10-08 19:43] MED LIST changes: +HYDR-4383 PO; -MECL-111 PO; +MECL-159 PO; +ONDA4TAB6 PO; -TRAZ-219 PO; +TRAZ-256 PO
[2019-10-08 20:32] LABS: BASOPHILS % (AUTO) 0.4 % (0-1); EOSINOPHILS # (AUTO) 0.1 X10'3 (0-0.9); EOSINOPHILS % (AUTO) 1.6 % (0-6); HEMATOCRIT 38.9 % (35.0-45.0); HEMOGLOBIN 13.5 g/dl (12.0-16.0); LYMPHOCYTES # (AUTO) 1.4 X10'3 (1.1-4.8); LYMPHOCYTES % (AUTO) 18.9 % (21-51); MEAN CORPUSCULAR HEMOGLOBIN 33.2 PG (27.0-31.0); MEAN CORPUSCULAR HGB CONC 34.7 g/dL (33.0-36.5); MEAN CORPUSCULAR VOLUME 95.8 FL (78-98); MEAN PLATELET VOLUME 7.5 FL (7.4-10.4); MONOCYTES # (AUTO) 0.3 X10'3 (0-0.9); MONOCYTES % (AUTO) 4.6 % (2-12); NEUTROPHILS # (AUTO) 5.3 X10'3 (1.8-7.7); NEUTROPHILS % (AUTO) 74.5 % (42-75); PLATELET COUNT 179 X10'3 (140-440); RED BLOOD COUNT 4.07 X10'6 (4.20-5.60); RED CELL DISTRIBUTION WIDTH 12.9 % (11.5-14.5); WHITE BLOOD COUNT 7.2 X10'3 (4.5-11.0)
[2019-10-08 20:47] LABS: ALANINE AMINOTRANSFERASE 56 U/L (12-78); ALBUMIN 3.5 G/DL (3.4-5.0); ALBUMIN/GLOBULIN RATIO 0.9 (1.1-1.5); ALKALINE PHOSPHATASE 107 IU/L (46-116); ANION GAP 7 (8-16); ASPARTATE AMINO TRANSFERASE 116 U/L (10-37); BILIRUBIN,TOTAL 0.3 MG/DL (0.1-1.0); BLOOD UREA NITROGEN 20 MG/DL (7-18); BUN/CREATININE RATIO 21.7 (6.6-38.0); CALCIUM 8.2 MG/DL (8.5-10.1); CHLORIDE 108 MMOL/L (99-107); CREATININE 0.92 MG/DL (0.40-0.90); GLUCOSE 65 MG/DL (70-104); POTASSIUM 3.7 MMOL/L (3.5-5.1); SODIUM 142 MMOL/L (135-145); TOTAL CARBON DIOXIDE 27.5 MMOL/L (24-32); TOTAL PROTEIN 7.2 G/DL (6.4-8.2); eGFR 61 ML/MIN
[2019-10-08 21:19] LABS: LIPASE 1585 U/L (73-393)
[2019-10-08] MEDS ORDERED: dicyclomine 10mg/ml 2ml ampule IM ONE (21:50)
[2019-10-08] MEDS ORDERED: ondansetron 4mg rapidly disintigrating tab PO ONE (21:50)
[2019-10-08] MEDS ORDERED: oxyCODONE/APAP 10/325mg tablet PO ONE (22:15)
[2019-10-08] MEDS ORDERED: ONDA4TAB12 PO (22:53)
[2019-10-08] MEDS ORDERED: OXYC-138 PO (22:53)
[2019-10-08] MEDS ORDERED: DICY10CA88 PO (22:53)
[2019-10-08 23:14] VITALS: BP 124/71
== END 2019-10-08 23:15 | disposition home or self-care (01) ==
LOC: ER 19:44
DX: K85.90 Acute pancreatitis without necrosis or infection, unspecified (principal); G43.909 Migraine, unspecified, not intractable, without status migrainosus; J44.9 Chronic obstructive pulmonary disease, unspecified; M19.90 Unspecified osteoarthritis, unspecified site; M79.7 Fibromyalgia; F41.9 Anxiety disorder, unspecified; F32.9 Major depressive disorder, single episode, unspecified; Z86.69 Personal history of other diseases of the nervous system and sense organs; Z90.49 Acquired absence of other specified parts of digestive tract; Z90.710 Acquired absence of both cervix and uterus; Z98.51 Tubal ligation status; Z98.890 Other specified postprocedural states; Z88.1 Allergy status to other antibiotic agents; Z88.8 Allergy status to other drugs, medicaments and biological substances; Z79.899 Other long term (current) drug therapy
CPT/HCPCS: 36415; 80053; 83690; 85025; 96372; 99283; J0500

== ENCOUNTER 2019-10-28 15:34 | Emergency (ER) | payer MEDICARE, MEDICAID ==
[~2019-10-28] VITALS: Ht 154.9 cm; Wt 46.0 kg
[~2019-10-28 15:34] MED LIST changes: +DICY10CA88 PO; +OXYC-138 PO
[2019-10-28] MEDS ORDERED: normal saline 1000ML IV soln IVB ONE (15:55)
[2019-10-28] MEDS ORDERED: morphine 4 MG/ML inj SYRINge IV ONE ×2 (15:55→17:00)
[2019-10-28] MEDS ORDERED: VENL150T3 PO (16:11)
[2019-10-28] MEDS ORDERED: FURO-150 PO (16:11)
[2019-10-28] MEDS ORDERED: MIRA50TA PO (16:11)
[2019-10-28] MEDS ORDERED: CLON-513 PO (16:11)
[2019-10-28] MEDS ORDERED: DOCU250C15 PO (16:11)
[2019-10-28] MEDS ORDERED: OMEP20TA23 PO (16:11)
[2019-10-28] MEDS ORDERED: FLUT1DIS20 INH (16:16)
[2019-10-28 16:37] LABS: BASOPHILS % (AUTO) 0.7 % (0-1); EOSINOPHILS # (AUTO) 0.1 X10'3 (0-0.9); EOSINOPHILS % (AUTO) 1.6 % (0-6); HEMATOCRIT 37.6 % (35.0-45.0); HEMOGLOBIN 12.7 g/dl (12.0-16.0); LYMPHOCYTES # (AUTO) 1.4 X10'3 (1.1-4.8); LYMPHOCYTES % (AUTO) 26.1 % (21-51); MEAN CORPUSCULAR HEMOGLOBIN 32.6 PG (27.0-31.0); MEAN CORPUSCULAR HGB CONC 33.8 g/dL (33.0-36.5); MEAN CORPUSCULAR VOLUME 96.2 FL (78-98); MEAN PLATELET VOLUME 7.7 FL (7.4-10.4); MONOCYTES # (AUTO) 0.4 X10'3 (0-0.9); MONOCYTES % (AUTO) 6.9 % (2-12); NEUTROPHILS # (AUTO) 3.4 X10'3 (1.8-7.7); NEUTROPHILS % (AUTO) 64.7 % (42-75); PLATELET COUNT 156 X10'3 (140-440); RED CELL DISTRIBUTION WIDTH 12.6 % (11.5-14.5); WHITE BLOOD COUNT 5.3 X10'3 (4.5-11.0)
[2019-10-28 16:44] LABS: ALANINE AMINOTRANSFERASE 24 U/L (12-78); ALBUMIN 3.4 G/DL (3.4-5.0); ALBUMIN/GLOBULIN RATIO 0.9 (1.1-1.5); ALKALINE PHOSPHATASE 80 IU/L (46-116); ANION GAP 11 (8-16); ASPARTATE AMINO TRANSFERASE 18 U/L (10-37); BILIRUBIN,TOTAL 0.3 MG/DL (0.1-1.0); BLOOD UREA NITROGEN 19 MG/DL (7-18); BUN/CREATININE RATIO 20.4 (6.6-38.0); CALCIUM 8.6 MG/DL (8.5-10.1); CHLORIDE 106 MMOL/L (99-107); CREATININE 0.93 MG/DL (0.40-0.90); GLUCOSE 77 MG/DL (70-104); POTASSIUM 3.1 MMOL/L (3.5-5.1); SODIUM 144 MMOL/L (135-145); TOTAL CARBON DIOXIDE 27.5 MMOL/L (24-32); eGFR 60 ML/MIN
[2019-10-28 16:49] LABS: LIPASE 281 U/L (73-393); TROPONIN I < 0.04 NG/ML (0.0-0.05)
[2019-10-28] MEDS ORDERED: ketorolac trometh. 30mg/ml inj. IV ONE (17:00)
--- NOTE | 2019-10-28 17:35 | NUR ---
pt returns from ct
[2019-10-28] MEDS ORDERED: HYDROcodone/acetaminophen 10/325mg tab PO ONE (18:10)
[2019-10-28] MEDS ORDERED: HYDR-3965 PO (18:10)
--- NOTE | 2019-10-28 18:28 | NUR ---
PATIENT REFUSED NORCO, STATING THAT "IT DOES NOTHING FOR ME" AND "I WILL JUST TAKE MORPHINE WHEN I GET HOME"
[2019-10-28 18:38] VITALS: BP 107/55
== END 2019-10-28 18:39 | disposition home or self-care (01) ==
LOC: ER 15:34
DX: R10.84 Generalized abdominal pain (principal); G43.909 Migraine, unspecified, not intractable, without status migrainosus; J44.9 Chronic obstructive pulmonary disease, unspecified; M19.90 Unspecified osteoarthritis, unspecified site; G89.29 Other chronic pain; F41.9 Anxiety disorder, unspecified; F32.9 Major depressive disorder, single episode, unspecified; Z90.49 Acquired absence of other specified parts of digestive tract; Z86.69 Personal history of other diseases of the nervous system and sense organs; Z90.710 Acquired absence of both cervix and uterus; Z98.890 Other specified postprocedural states; Z90.89 Acquired absence of other organs; Z98.51 Tubal ligation status; Z79.2 Long term (current) use of antibiotics; Z88.6 Allergy status to analgesic agent; Z88.8 Allergy status to other drugs, medicaments and biological substances; Z79.899 Other long term (current) drug therapy
CPT/HCPCS: 36415; 71045; 74176; 80053; 83690; 84484; 85025; 93005; 96374; 96375; 96376; 99285; J1885; J2270; J7030

== ENCOUNTER 2019-12-22 13:30 | Emergency (ER) | payer MEDICARE, MEDICAID ==
[~2019-12-22] VITALS: Ht 154.9 cm; Wt 46.8 kg
[~2019-12-22 13:30] MED LIST changes: +CLON-513 PO; -CLON-528 PO; -DICY10CA88 PO; -DOCU100C41 PO; +DOCU250C15 PO; +FLUT1DIS20 INH; +FURO-150 PO; -HYDR-4383 PO; -LOPE2TAB25 PO; +MIRA50TA PO; +OMEP20TA23 PO; -ONDA4TAB12 PO; -ONDA4TAB6 PO; -ONDA8TAB9 PO; -OXYB5TAB16 PO; -OXYC-138 PO; -PANT-47 PO; -VENL-191 PO; +VENL150T3 PO
--- NOTE | 2019-12-22 13:41 | NUR ---
CARE GIVERS PHONE # [phone]; CALL FOR [facility]
--- NOTE | 2019-12-22 15:33 | NUR ---
I SPOKE WITH PATIENT AT BEDSIDE. SHE STATES THAT SHE LIVES ALONE, IN AN APARTMENT. SHE HAS [facility] HELPER, WHO COMES 3X A WEEK. SHE HAS A 4WW. SHE IS AGREEABLE TO RN, PT AND SW. I CALLED DEION AT [facility]. SHE IS ABLE TO OPEN PATIENT TOMORROW. I FAXED ATTESTATION AND CLINICAL INFORMATION TO [facility]. NOTIFIED RN AND PATIENT.
--- NOTE | 2019-12-22 15:35 | NUR ---
Spoke with Ute, pt's CG for transport; HAYDEN 15 m. Updated her on pt's DC POC including new orders for home health[facility], beginning tomorrow.
[2019-12-22 16:01] VITALS: BP 103/64
== END 2019-12-22 15:58 | disposition home or self-care (01) ==
LOC: ER 13:31
DX: M25.562 Pain in left knee (principal); M25.561 Pain in right knee; J44.9 Chronic obstructive pulmonary disease, unspecified; M19.90 Unspecified osteoarthritis, unspecified site; G89.29 Other chronic pain; F41.9 Anxiety disorder, unspecified; F32.9 Major depressive disorder, single episode, unspecified; Z86.69 Personal history of other diseases of the nervous system and sense organs; Z90.89 Acquired absence of other organs; Z90.49 Acquired absence of other specified parts of digestive tract; Z90.710 Acquired absence of both cervix and uterus; Z98.890 Other specified postprocedural states; Z98.51 Tubal ligation status; Z88.1 Allergy status to other antibiotic agents; Z88.8 Allergy status to other drugs, medicaments and biological substances; Z79.899 Other long term (current) drug therapy
CPT/HCPCS: 73560; 99284

== ENCOUNTER 2020-01-09 21:46 | Emergency (ER) | payer MEDICARE, MEDICAID ==
[~2020-01-09] VITALS: Ht 154.9 cm; Wt 47.7 kg
[2020-01-09 22:28] LABS: CLARITY,URINE SLIGHTLY CLOUDY (Clear); COLOR,URINE YELLOW (Yellow); GLUCOSE, URINE NEGATIVE (Neg); KETONES,URINE NEGATIVE (Neg); LEUKOCYTE ESTERASE ,URINE TRACE (Neg); NITRITES, URINE POSITIVE (Neg); OCCULT BLOOD,URINE NEGATIVE (Neg); PH,URINE 6.5 (4.8-8.0); PROTEIN,URINE NEGATIVE (Neg); UA COLLECTION TYPE CLN CATCH MIDSTREAM; UROBILINOGEN,URINE 0.2 E.U/dL (0.2-1.0)
[2020-01-09] MEDS ORDERED: ondansetron/PF 4mg/2ml inj IV ONE (22:35)
[2020-01-09] MEDS ORDERED: dextrose 5%-normal saline 1,000 ML IV ONE (22:35)
[2020-01-09 22:36] LABS: BACTERIA,URINE 4+ /HPF (Neg); HYALINE CASTS 0-3 /LPF (NEGATIVE)
[2020-01-09 22:37] LABS: RBC,URINE NONE SEEN /HPF (0-2); SQUAMOUS EPITHELIAL CELL,UR FEW /LPF (FEW); WBC,URINE 20-30 /HPF (0-4)
[2020-01-09 22:38] LABS: MUCUS STRANDS FEW /LPF (Neg)
[2020-01-09 23:38] LABS: BASOPHILS % (AUTO) 0.3 % (0-1); EOSINOPHILS # (AUTO) 0.2 X10'3 (0-0.9); EOSINOPHILS % (AUTO) 2.9 % (0-6); HEMATOCRIT 34.6 % (35.0-45.0); HEMOGLOBIN 11.5 g/dl (12.0-16.0); LYMPHOCYTES # (AUTO) 1.5 X10'3 (1.1-4.8); LYMPHOCYTES % (AUTO) 26.2 % (21-51); MEAN CORPUSCULAR HEMOGLOBIN 32.4 PG (27.0-31.0); MEAN CORPUSCULAR HGB CONC 33.2 g/dL (33.0-36.5); MEAN CORPUSCULAR VOLUME 97.4 FL (78-98); MEAN PLATELET VOLUME 7.5 FL (7.4-10.4); MONOCYTES # (AUTO) 0.4 X10'3 (0-0.9); NEUTROPHILS # (AUTO) 3.7 X10'3 (1.8-7.7); NEUTROPHILS % (AUTO) 63.6 % (42-75); PLATELET COUNT 151 X10'3 (140-440); RED BLOOD COUNT 3.56 X10'6 (4.20-5.60); RED CELL DISTRIBUTION WIDTH 13.3 % (11.5-14.5); WHITE BLOOD COUNT 5.7 X10'3 (4.5-11.0)
[2020-01-09] MEDS ORDERED: CefTRIAXone/D5W-Rocephin 1gm 50 ML IV ONE (23:45)
[2020-01-09 23:53] LABS: ALANINE AMINOTRANSFERASE 34 U/L (12-78); ALKALINE PHOSPHATASE 82 IU/L (46-116); ANION GAP 6 (8-16); ASPARTATE AMINO TRANSFERASE 43 U/L (10-37); BILIRUBIN,TOTAL 0.2 MG/DL (0.1-1.0); BLOOD UREA NITROGEN 17 MG/DL (7-18); BUN/CREATININE RATIO 19.1 (6.6-38.0); CALCIUM 8.1 MG/DL (8.5-10.1); CHLORIDE 110 MMOL/L (99-107); CREATININE 0.89 MG/DL (0.40-0.90); GLUCOSE 166 MG/DL (70-104); POTASSIUM 3.8 MMOL/L (3.5-5.1); SODIUM 144 MMOL/L (135-145); TOTAL CARBON DIOXIDE 27.6 MMOL/L (24-32); TOTAL PROTEIN 6.1 G/DL (6.4-8.2); eGFR 63 ML/MIN
[2020-01-09 23:56] LABS: TROPONIN I < 0.04 NG/ML (0.0-0.05)
[2020-01-10] MEDS ORDERED: CEPH250T PO (00:12)
[2020-01-10 01:24] VITALS: BP 118/39
== END 2020-01-10 00:46 | disposition home or self-care (01) ==
LOC: ER 21:47
DX: N39.0 Urinary tract infection, site not specified (principal); G89.29 Other chronic pain; R10.84 Generalized abdominal pain; R19.7 Diarrhea, unspecified; G43.909 Migraine, unspecified, not intractable, without status migrainosus; J44.9 Chronic obstructive pulmonary disease, unspecified; M19.90 Unspecified osteoarthritis, unspecified site; M79.7 Fibromyalgia; Z90.49 Acquired absence of other specified parts of digestive tract; Z90.710 Acquired absence of both cervix and uterus; Z98.890 Other specified postprocedural states; Z88.1 Allergy status to other antibiotic agents; Z88.8 Allergy status to other drugs, medicaments and biological substances; Z79.899 Other long term (current) drug therapy; W18.30XA Fall on same level, unspecified, initial encounter; Y93.89 Activity, other specified; Y92.099 Unspecified place in other non-institutional residence as the place of occurrence of the external cause; Y99.9 Unspecified external cause status
CPT/HCPCS: 36415; 70450; 71045; 72125; 80053; 81001; 84484; 85025; 87077; 87088; 87186; 93005; 96365; 96375; 99285; J0696; J2405; J7042

== ENCOUNTER 2020-02-19 23:25 | Emergency (ER) | payer MEDICARE, MEDICAID ==
[~2020-02-19] VITALS: Ht 154.9 cm; Wt 47.7 kg
[2020-02-20 00:37] LABS: PARTIAL THROMBOPLASTIN TIME 21 SECONDS (22-32)
[2020-02-20 00:44] LABS: BASOPHILS % (AUTO) 0.3 % (0-1); EOSINOPHILS # (AUTO) 0.1 X10'3 (0-0.9); EOSINOPHILS % (AUTO) 1.4 % (0-6); HEMATOCRIT 39.5 % (35.0-45.0); HEMOGLOBIN 13.3 g/dl (12.0-16.0); LYMPHOCYTES # (AUTO) 1.6 X10'3 (1.1-4.8); LYMPHOCYTES % (AUTO) 21.5 % (21-51); MEAN CORPUSCULAR HEMOGLOBIN 32.4 PG (27.0-31.0); MEAN CORPUSCULAR HGB CONC 33.6 g/dL (33.0-36.5); MEAN CORPUSCULAR VOLUME 96.5 FL (78-98); MEAN PLATELET VOLUME 7.8 FL (7.4-10.4); MONOCYTES # (AUTO) 0.5 X10'3 (0-0.9); MONOCYTES % (AUTO) 6.3 % (2-12); NEUTROPHILS # (AUTO) 5.4 X10'3 (1.8-7.7); NEUTROPHILS % (AUTO) 70.5 % (42-75); PLATELET COUNT 172 X10'3 (140-440); RED BLOOD COUNT 4.09 X10'6 (4.20-5.60); RED CELL DISTRIBUTION WIDTH 12.8 % (11.5-14.5); WHITE BLOOD COUNT 7.6 X10'3 (4.5-11.0)
[2020-02-20] MEDS ORDERED: normal saline 1000ML IV soln IVB ONE (01:00)
--- NOTE | 2020-02-20 01:03 | NUR ---
CHECKED ON THE PATIENT AND TOOK VS AND BP A LITTLE LOW AND HER SKIN IS CLAMMY AND SHE HAS EPIGASTRIC PAIN. SHE SAID SHE HAD THIS TYPE OF PAIN BEFORE AND HAS A HX OF PANCREATITIS AND LAST BOUT 4 MO AGO. INFORMED . HUNG 1 L OF NS ON PRESSURE BAG.
[2020-02-20 01:06] LABS: ALANINE AMINOTRANSFERASE 38 U/L (12-78); ALBUMIN 3.6 G/DL (3.4-5.0); ALKALINE PHOSPHATASE 89 IU/L (46-116); ANION GAP 8 (8-16); ASPARTATE AMINO TRANSFERASE 58 U/L (10-37); BILIRUBIN,TOTAL 0.3 MG/DL (0.1-1.0); BLOOD UREA NITROGEN 19 MG/DL (7-18); BUN/CREATININE RATIO 19.2 (6.6-38.0); CALCIUM 8.6 MG/DL (8.5-10.1); CHLORIDE 109 MMOL/L (99-107); CREATININE 0.99 MG/DL (0.40-0.90); GLUCOSE 87 MG/DL (70-104); POTASSIUM 3.5 MMOL/L (3.5-5.1); SODIUM 144 MMOL/L (135-145); TOTAL CARBON DIOXIDE 27.5 MMOL/L (24-32); TOTAL PROTEIN 7.3 G/DL (6.4-8.2); eGFR 56 ML/MIN
[2020-02-20] MEDS ORDERED: mag hydrox/Alum hydrox/simeth 30ml oral suspension PO ONE (02:00)
[2020-02-20] MEDS ORDERED: LIDOcaine Viscous 15ml cup MM ONE (02:00)
[2020-02-20] MEDS ORDERED: famotidine 20mg tablet PO ONE (02:00)
--- NOTE | 2020-02-20 02:20 | NUR ---
PT REQUESTED MEDICATIONS FOR ABD PAIN, BUT REFUSED MEDICATIONS THAT WERE ORDERED STATING "MORPHINE IS ONLY THING THAT WORKS". PATIENT WANTED TO BE DISCHARGED TO TAKE HER MORHPINE AT HOME.
[2020-02-20 02:34] VITALS: BP 104/48
== END 2020-02-20 02:58 | disposition home or self-care (01) ==
LOC: ER 23:26
DX: S16.1XXA Strain of muscle, fascia and tendon at neck level, initial encounter (principal); R11.2 Nausea with vomiting, unspecified; R52 Pain, unspecified; G43.909 Migraine, unspecified, not intractable, without status migrainosus; J45.909 Unspecified asthma, uncomplicated; J44.9 Chronic obstructive pulmonary disease, unspecified; M19.90 Unspecified osteoarthritis, unspecified site; G89.29 Other chronic pain; F41.9 Anxiety disorder, unspecified; F32.9 Major depressive disorder, single episode, unspecified; Z86.69 Personal history of other diseases of the nervous system and sense organs; Z90.89 Acquired absence of other organs; Z90.49 Acquired absence of other specified parts of digestive tract; Z90.710 Acquired absence of both cervix and uterus; Z98.890 Other specified postprocedural states; Z98.51 Tubal ligation status; Z88.1 Allergy status to other antibiotic agents; Z88.8 Allergy status to other drugs, medicaments and biological substances; Z79.899 Other long term (current) drug therapy; W19.XXXA Unspecified fall, initial encounter; Y93.89 Activity, other specified; Y92.89 Other specified places as the place of occurrence of the external cause; Y99.8 Other external cause status
CPT/HCPCS: 36415; 70450; 71045; 72125; 80053; 84484; 85025; 85610; 85730; 93005; 96360; 99285; J7030

== ENCOUNTER 2020-04-04 14:56 | Emergency (ER) | payer MEDICARE, MEDICAID ==
[~2020-04-04] VITALS: Ht 154.9 cm; Wt 47.3 kg
[2020-04-04 15:05] VITALS: BP 98/39
[2020-04-04] MEDS ORDERED: ONDA4TAB6 PO (16:54)
== END 2020-04-04 17:23 | disposition home or self-care (01) ==
LOC: ER 14:57
DX: F07.81 Postconcussional syndrome (principal); G43.909 Migraine, unspecified, not intractable, without status migrainosus; J44.9 Chronic obstructive pulmonary disease, unspecified; M19.90 Unspecified osteoarthritis, unspecified site; G89.29 Other chronic pain; F41.9 Anxiety disorder, unspecified; F32.9 Major depressive disorder, single episode, unspecified; Z86.69 Personal history of other diseases of the nervous system and sense organs; Z90.49 Acquired absence of other specified parts of digestive tract; Z90.710 Acquired absence of both cervix and uterus; Z98.890 Other specified postprocedural states; Z90.89 Acquired absence of other organs; Z98.51 Tubal ligation status; Z79.2 Long term (current) use of antibiotics; Z88.6 Allergy status to analgesic agent; Z88.8 Allergy status to other drugs, medicaments and biological substances; Z79.899 Other long term (current) drug therapy
CPT/HCPCS: 70450; 99284

== ENCOUNTER 2020-04-23 17:11 | Emergency (ER) | payer MEDICARE, MEDICAID ==
[~2020-04-23] VITALS: Ht 154.9 cm; Wt 48.2 kg
[~2020-04-23 17:11] MED LIST changes: +ONDA4TAB6 PO
[2020-04-23 18:00] LABS: BASOPHILS % (AUTO) 0.7 % (0-1); EOSINOPHILS # (AUTO) 0.1 X10'3 (0-0.9); EOSINOPHILS % (AUTO) 2.3 % (0-6); HEMOGLOBIN 12.2 g/dl (12.0-16.0); LYMPHOCYTES # (AUTO) 1.3 X10'3 (1.1-4.8); LYMPHOCYTES % (AUTO) 23.4 % (21-51); MEAN CORPUSCULAR HEMOGLOBIN 32.7 PG (27.0-31.0); MEAN CORPUSCULAR HGB CONC 33.8 g/dL (33.0-36.5); MEAN CORPUSCULAR VOLUME 96.8 FL (78-98); MEAN PLATELET VOLUME 7.6 FL (7.4-10.4); MONOCYTES # (AUTO) 0.5 X10'3 (0-0.9); MONOCYTES % (AUTO) 8.6 % (2-12); NEUTROPHILS # (AUTO) 3.6 X10'3 (1.8-7.7); PLATELET COUNT 165 X10'3 (140-440); RED BLOOD COUNT 3.72 X10'6 (4.20-5.60); RED CELL DISTRIBUTION WIDTH 13.5 % (11.5-14.5); WHITE BLOOD COUNT 5.6 X10'3 (4.5-11.0)
[2020-04-23 18:15] LABS: ANION GAP 7 (8-16); BLOOD UREA NITROGEN 19 MG/DL (7-18); BUN/CREATININE RATIO 21.1 (6.6-38.0); CHLORIDE 108 MMOL/L (99-107); GLUCOSE 68 MG/DL (70-104); POTASSIUM 3.6 MMOL/L (3.5-5.1); SODIUM 143 MMOL/L (135-145); TOTAL CARBON DIOXIDE 27.9 MMOL/L (24-32)
[2020-04-23 18:16] LABS: ALANINE AMINOTRANSFERASE 16 U/L (12-78); ALBUMIN 3.1 G/DL (3.4-5.0); ALBUMIN/GLOBULIN RATIO 0.9 (1.1-1.5); ALKALINE PHOSPHATASE 74 IU/L (46-116); ASPARTATE AMINO TRANSFERASE 11 U/L (10-37); BILIRUBIN,TOTAL 0.3 MG/DL (0.1-1.0); CALCIUM 8.2 MG/DL (8.5-10.1); LIPASE 104 U/L (73-393); TOTAL PROTEIN 6.6 G/DL (6.4-8.2); eGFR 62 ML/MIN
[2020-04-23] MEDS ORDERED: LIDOcaine Viscous 15ml cup MM STA (18:24)
[2020-04-23] MEDS ORDERED: LORazepam 2 mg/ml vial IM ONE (18:25)
[2020-04-23] MEDS ORDERED: mag hydrox/Alum hydrox/simeth 30ml oral suspension PO ONE (18:25)
[2020-04-23] MEDS ORDERED: dicyclomine 10 MG capsule PO ONE (18:35)
[2020-04-23] MEDS ORDERED: normal saline 1000ML IV soln IVB ONE (18:35)
[2020-04-23 19:31] LABS: CLARITY,URINE CLEAR (Clear); COLOR,URINE YELLOW (Yellow); GLUCOSE, URINE NEGATIVE (Neg); KETONES,URINE NEGATIVE (Neg); LEUKOCYTE ESTERASE ,URINE NEGATIVE (Neg); NITRITES, URINE NEGATIVE (Neg); OCCULT BLOOD,URINE NEGATIVE (Neg); PROTEIN,URINE NEGATIVE (Neg); UROBILINOGEN,URINE 0.2 E.U/dL (0.2-1.0)
--- NOTE | 2020-04-23 19:35 | NUR ---
Pt PIV infiltrated after roughly 500mL of fluid. Spoke to VAL Roque, who is comfortable with this amount of fluid volume and pt can be discharged home at this time.
[2020-04-23 19:42] LABS: UA COLLECTION TYPE CLN CATCH MIDSTREAM
[2020-04-23 19:48] VITALS: BP 109/55
== END 2020-04-23 19:45 | disposition home or self-care (01) ==
LOC: ER 17:12
DX: G89.29 Other chronic pain (principal); R10.31 Right lower quadrant pain; G43.909 Migraine, unspecified, not intractable, without status migrainosus; J44.9 Chronic obstructive pulmonary disease, unspecified; M19.90 Unspecified osteoarthritis, unspecified site; F41.9 Anxiety disorder, unspecified; F32.9 Major depressive disorder, single episode, unspecified; Z90.49 Acquired absence of other specified parts of digestive tract; Z90.710 Acquired absence of both cervix and uterus; Z98.51 Tubal ligation status; Z98.890 Other specified postprocedural states; Z79.2 Long term (current) use of antibiotics; Z88.6 Allergy status to analgesic agent; Z88.8 Allergy status to other drugs, medicaments and biological substances; Z79.899 Other long term (current) drug therapy
CPT/HCPCS: 36415; 80053; 81003; 83690; 85025; 96360; 96372; 99284; J2060; J7030; 99283

== ENCOUNTER 2020-06-15 11:28 | Emergency (ER) | payer MEDICARE, MEDICAID ==
[~2020-06-15] VITALS: Ht 154.9 cm; Wt 48.2 kg
[2020-06-15] MEDS ORDERED: ondansetron/PF 4mg/2ml inj IV ONE (12:10)
[2020-06-15] MEDS ORDERED: normal saline 1000ML IV soln IVB ONE (12:10)
[2020-06-15 12:54] LABS: BASOPHILS % (AUTO) 0.8 % (0-1); EOSINOPHILS # (AUTO) 0.1 X10'3 (0-0.9); EOSINOPHILS % (AUTO) 3.2 % (0-6); HEMATOCRIT 38.5 % (35.0-45.0); HEMOGLOBIN 12.9 g/dl (12.0-16.0); LYMPHOCYTES # (AUTO) 1.4 X10'3 (1.1-4.8); LYMPHOCYTES % (AUTO) 33.3 % (21-51); MEAN CORPUSCULAR HEMOGLOBIN 32.3 PG (27.0-31.0); MEAN CORPUSCULAR HGB CONC 33.5 g/dL (33.0-36.5); MEAN CORPUSCULAR VOLUME 96.2 FL (78-98); MEAN PLATELET VOLUME 7.5 FL (7.4-10.4); MONOCYTES # (AUTO) 0.4 X10'3 (0-0.9); MONOCYTES % (AUTO) 8.7 % (2-12); NEUTROPHILS # (AUTO) 2.2 X10'3 (1.8-7.7); PLATELET COUNT 160 X10'3 (140-440); RED CELL DISTRIBUTION WIDTH 13.2 % (11.5-14.5); WHITE BLOOD COUNT 4.2 X10'3 (4.5-11.0)
[2020-06-15 13:06] LABS: ALANINE AMINOTRANSFERASE 36 U/L (12-78); ALBUMIN 3.3 G/DL (3.4-5.0); ALBUMIN/GLOBULIN RATIO 0.8 (1.1-1.5); ALKALINE PHOSPHATASE 105 IU/L (46-116); ANION GAP 5 (8-16); ASPARTATE AMINO TRANSFERASE 22 U/L (10-37); BILIRUBIN,TOTAL 0.2 MG/DL (0.1-1.0); BLOOD UREA NITROGEN 16 MG/DL (7-18); BUN/CREATININE RATIO 18.2 (6.6-38.0); CALCIUM 8.5 MG/DL (8.5-10.1); CHLORIDE 108 MMOL/L (99-107); CREATININE 0.88 MG/DL (0.40-0.90); GLUCOSE 79 MG/DL (70-104); LIPASE 106 U/L (73-393); POTASSIUM 3.3 MMOL/L (3.5-5.1); SODIUM 143 MMOL/L (135-145); TOTAL CARBON DIOXIDE 29.7 MMOL/L (24-32); TOTAL PROTEIN 7.2 G/DL (6.4-8.2); eGFR 64 ML/MIN
[2020-06-15] MEDS ORDERED: LOPE2CAP PO (13:25)
[2020-06-15] MEDS ORDERED: morphine 4 MG/ML inj SYRINge IV ONE (13:25)
[2020-06-15 14:17] VITALS: BP 108/71
== END 2020-06-15 14:22 | disposition home or self-care (01) ==
LOC: ER 11:29
DX: R19.7 Diarrhea, unspecified (principal); R53.1 Weakness; R10.84 Generalized abdominal pain; R11.0 Nausea; R53.83 Other fatigue; G43.909 Migraine, unspecified, not intractable, without status migrainosus; J44.9 Chronic obstructive pulmonary disease, unspecified; M19.90 Unspecified osteoarthritis, unspecified site; G89.29 Other chronic pain; F41.9 Anxiety disorder, unspecified; F32.9 Major depressive disorder, single episode, unspecified; Z86.69 Personal history of other diseases of the nervous system and sense organs; Z90.89 Acquired absence of other organs; Z90.49 Acquired absence of other specified parts of digestive tract; Z90.710 Acquired absence of both cervix and uterus; Z98.890 Other specified postprocedural states; Z98.51 Tubal ligation status; Z88.1 Allergy status to other antibiotic agents; Z88.8 Allergy status to other drugs, medicaments and biological substances; Z79.899 Other long term (current) drug therapy
CPT/HCPCS: 36415; 74176; 80053; 83690; 85025; 96361; 96374; 96375; 99284; J2270; J2405; J7030

== ENCOUNTER 2020-06-24 09:28 | Emergency (ER) | payer MEDICARE, MEDICAID ==
[~2020-06-24] VITALS: Ht 154.9 cm; Wt 48.2 kg
[~2020-06-24 09:28] MED LIST changes: +LOPE2CAP PO
--- NOTE | 2020-06-24 09:36 | NUR ---
Pt out to CT
--- NOTE | 2020-06-24 09:53 | NUR ---
Pt no longer stroke alert per VAL Hawley
[2020-06-24 10:41] LABS: BASOPHILS % (AUTO) 0.7 % (0-1); EOSINOPHILS # (AUTO) 0.1 X10'3 (0-0.9); EOSINOPHILS % (AUTO) 2.2 % (0-6); HEMATOCRIT 42.4 % (35.0-45.0); LYMPHOCYTES # (AUTO) 1.4 X10'3 (1.1-4.8); LYMPHOCYTES % (AUTO) 30.9 % (21-51); MEAN CORPUSCULAR HEMOGLOBIN 31.9 PG (27.0-31.0); MEAN CORPUSCULAR HGB CONC 33.1 g/dL (33.0-36.5); MEAN CORPUSCULAR VOLUME 96.3 FL (78-98); MEAN PLATELET VOLUME 7.2 FL (7.4-10.4); MONOCYTES # (AUTO) 0.3 X10'3 (0-0.9); MONOCYTES % (AUTO) 6.7 % (2-12); NEUTROPHILS # (AUTO) 2.7 X10'3 (1.8-7.7); NEUTROPHILS % (AUTO) 59.5 % (42-75); PLATELET COUNT 224 X10'3 (140-440); RED CELL DISTRIBUTION WIDTH 13.1 % (11.5-14.5); WHITE BLOOD COUNT 4.6 X10'3 (4.5-11.0)
[2020-06-24 10:54] LABS: PARTIAL THROMBOPLASTIN TIME 24 SECONDS (22-32)
[2020-06-24 11:19] LABS: ALANINE AMINOTRANSFERASE 29 U/L (12-78); ALBUMIN 4.2 G/DL (3.4-5.0); ALKALINE PHOSPHATASE 96 IU/L (46-116); ANION GAP 10 (8-16); ASPARTATE AMINO TRANSFERASE 28 U/L (10-37); BILIRUBIN,TOTAL 0.3 MG/DL (0.1-1.0); BLOOD UREA NITROGEN 19 MG/DL (7-18); BUN/CREATININE RATIO 18.6 (6.6-38.0); CALCIUM 9.3 MG/DL (8.5-10.1); CHLORIDE 103 MMOL/L (99-107); CREATININE 1.02 MG/DL (0.40-0.90); GLUCOSE 92 MG/DL (70-104); PHENYTOIN (DILANTIN) 0.9 UG/ML (10.0-20.0); POTASSIUM 3.6 MMOL/L (3.5-5.1); SODIUM 143 MMOL/L (135-145); TOTAL CARBON DIOXIDE 30.3 MMOL/L (24-32); TOTAL PROTEIN 8.5 G/DL (6.4-8.2); TROPONIN I < 0.04 NG/ML (0.0-0.05); eGFR 54 ML/MIN
[2020-06-24 12:30] VITALS: BP 95/39
--- NOTE | 2020-06-24 12:38 | NUR ---
CALL TO CAREGIVER AISHWARYA [phone] AT THIS TIME. CAREGIVER TO COME FILM COATER PATIENT.
[2020-06-24 13:04] LABS: URINE AMPHETAMINE SCREEN NEGATIVE (Neg); URINE BARBITUATE SCREEN POSITIVE (Neg); URINE BENZODIAZEPINES SCREEN NEGATIVE (Neg); URINE CANNABINOID SCREEN NEGATIVE (Neg); URINE COCAINE SCREEN NEGATIVE (Neg); URINE METHADONE SCREEN NEGATIVE (Neg); URINE OPIATE SCREEN NEGATIVE (Neg); URINE PHENCYCLIDINE SCREEN NEGATIVE (Neg)
== END 2020-06-24 13:05 | disposition home or self-care (01) ==
LOC: ER 09:29
DX: G40.909 Epilepsy, unspecified, not intractable, without status epilepticus (principal); G43.909 Migraine, unspecified, not intractable, without status migrainosus; J44.9 Chronic obstructive pulmonary disease, unspecified; M19.90 Unspecified osteoarthritis, unspecified site; F41.9 Anxiety disorder, unspecified; F32.9 Major depressive disorder, single episode, unspecified; R46.89 Other symptoms and signs involving appearance and behavior; Z90.49 Acquired absence of other specified parts of digestive tract; Z98.890 Other specified postprocedural states; Z90.710 Acquired absence of both cervix and uterus; Z98.51 Tubal ligation status; Z79.2 Long term (current) use of antibiotics; Z88.6 Allergy status to analgesic agent; Z88.8 Allergy status to other drugs, medicaments and biological substances; Z79.899 Other long term (current) drug therapy
CPT/HCPCS: 36415; 70450; 71045; 80053; 80185; 80305; 84484; 85025; 85610; 85730; 93005; 99285

== ENCOUNTER 2020-07-17 14:39 | Emergency (ER) | payer MEDICARE, MEDICAID ==
[~2020-07-17] VITALS: Ht 154.9 cm; Wt 50.0 kg
[2020-07-17] MEDS ORDERED: normal saline 1000ml 1,000 ML IV ONE (16:00)
[2020-07-17] MEDS ORDERED: ondansetron/PF 4mg/2ml inj IV ONE (16:00)
[2020-07-17 16:03] LABS: CLARITY,URINE SLIGHTLY CLOUDY (Clear); COLOR,URINE YELLOW (Yellow); GLUCOSE, URINE NEGATIVE (Neg); KETONES,URINE NEGATIVE (Neg); LEUKOCYTE ESTERASE ,URINE NEGATIVE (Neg); NITRITES, URINE NEGATIVE (Neg); OCCULT BLOOD,URINE NEGATIVE (Neg); PROTEIN,URINE NEGATIVE (Neg); UROBILINOGEN,URINE 0.2 E.U/dL (0.2-1.0)
[2020-07-17 16:08] LABS: UA COLLECTION TYPE CLN CATCH MIDSTREAM
[2020-07-17 16:12] LABS: BACTERIA,URINE 1+ /HPF (Neg); RBC,URINE 0-2 /HPF (0-2); SQUAMOUS EPITHELIAL CELL,UR MANY /LPF (FEW); TRANSITIONAL EPI CELLS,URINE FEW /HPF; WBC,URINE 0-4 /HPF (0-4)
[2020-07-17 16:13] LABS: ALANINE AMINOTRANSFERASE 28 U/L (12-78); ALBUMIN 3.8 G/DL (3.4-5.0); ALKALINE PHOSPHATASE 91 IU/L (46-116); ANION GAP 10 (8-16); ASPARTATE AMINO TRANSFERASE 41 U/L (10-37); BILIRUBIN,TOTAL 0.3 MG/DL (0.1-1.0); BLOOD UREA NITROGEN 13 MG/DL (7-18); BUN/CREATININE RATIO 12.4 (6.6-38.0); CALCIUM 8.8 MG/DL (8.5-10.1); CHLORIDE 107 MMOL/L (99-107); CREATININE 1.05 MG/DL (0.40-0.90); GLUCOSE 75 MG/DL (70-104); LIPASE 190 U/L (73-393); POTASSIUM 3.2 MMOL/L (3.5-5.1); SODIUM 144 MMOL/L (135-145); TOTAL CARBON DIOXIDE 27.4 MMOL/L (24-32); TOTAL PROTEIN 7.8 G/DL (6.4-8.2); eGFR 52 ML/MIN
[2020-07-17] MEDS ORDERED: diazepam 5mg tablet PO ONE (16:20)
[2020-07-17 16:25] LABS: BASOPHILS % (AUTO) 0.6 % (0-1); EOSINOPHILS # (AUTO) 0.1 X10'3 (0-0.9); EOSINOPHILS % (AUTO) 0.9 % (0-6); HEMATOCRIT 40.3 % (35.0-45.0); HEMOGLOBIN 13.7 g/dl (12.0-16.0); LYMPHOCYTES # (AUTO) 1.8 X10'3 (1.1-4.8); LYMPHOCYTES % (AUTO) 22.9 % (21-51); MEAN CORPUSCULAR HEMOGLOBIN 32.5 PG (27.0-31.0); MEAN CORPUSCULAR VOLUME 95.7 FL (78-98); MEAN PLATELET VOLUME 7.7 FL (7.4-10.4); MONOCYTES # (AUTO) 0.3 X10'3 (0-0.9); MONOCYTES % (AUTO) 3.9 % (2-12); NEUTROPHILS # (AUTO) 5.6 X10'3 (1.8-7.7); NEUTROPHILS % (AUTO) 71.7 % (42-75); PLATELET COUNT 157 X10'3 (140-440); RED BLOOD COUNT 4.21 X10'6 (4.20-5.60); RED CELL DISTRIBUTION WIDTH 12.8 % (11.5-14.5); WHITE BLOOD COUNT 7.8 X10'3 (4.5-11.0)
--- NOTE | 2020-07-17 17:05 | NUR ---
Breaking primary RN. Pt currently in CT and MRI.
[2020-07-17] MEDS ORDERED: iohexol 350MG/ML 100ml bottle IV ONE (17:13)
--- NOTE | 2020-07-17 17:44 | NUR ---
Patient returns from CT and MRI
[2020-07-17] MEDS ORDERED: morphine ER 30mg tablet PO SCH (18:05)
[2020-07-17] MEDS ORDERED: meclizine 12.5mg tablet PO ONE (18:05)
--- NOTE | 2020-07-17 18:52 | NUR ---
patient gait tested. pt able to ambulate with some assistance. pt uses walker at home and reports that this has been her baseline since a seizure about two weeks ago. aware.
[2020-07-17 19:14] VITALS: BP 117/52
== END 2020-07-17 19:16 | disposition home or self-care (01) ==
LOC: ER 14:40
DX: R42 Dizziness and giddiness (principal); G89.29 Other chronic pain; R10.84 Generalized abdominal pain; R11.10 Vomiting, unspecified; G43.909 Migraine, unspecified, not intractable, without status migrainosus; J44.9 Chronic obstructive pulmonary disease, unspecified; M19.90 Unspecified osteoarthritis, unspecified site; F41.9 Anxiety disorder, unspecified; F32.9 Major depressive disorder, single episode, unspecified; Z86.69 Personal history of other diseases of the nervous system and sense organs; Z90.89 Acquired absence of other organs; Z90.49 Acquired absence of other specified parts of digestive tract; Z90.710 Acquired absence of both cervix and uterus; Z98.890 Other specified postprocedural states; Z98.51 Tubal ligation status; Z60.2 Problems related to living alone; Z88.1 Allergy status to other antibiotic agents; Z88.8 Allergy status to other drugs, medicaments and biological substances; Z79.899 Other long term (current) drug therapy
CPT/HCPCS: 36415; 70450; 70496; 70498; 70551; 80053; 81001; 83690; 85025; 85610; 93005; 96361; 96374; 99285; J2405; J7030; J8597; Q9967

== ENCOUNTER 2020-07-18 11:26 | Emergency (ER) | payer MEDICARE, MEDICAID ==
[~2020-07-18] VITALS: Ht 154.9 cm; Wt 48.2 kg
--- NOTE | 2020-07-18 14:11 | NUR ---
TC FROM CAREGIVER FOR CONDITION REPORT. CAREGIVER INFORMED THAT PATIENT WAS BEING DISCHARGED. CAREGIVER IS UNABLE TO PROVIDE TRANSPORTATION AND SUGGESTS TAXI. TC TO PATIENT'S MOTHER, JULIET. MOTHER STATES SHE DOES NOT DRIVE AND SO TAXI FOR JUANITA IS MOST APPROPRIATE, SINCE CAREGIVER IS UNABLE TO COME. IV REMOVED AND DC PAPERWORK GIVEN TO PATIENT. DEPARTED IN GOOD CONDITION.
[2020-07-18 14:17] VITALS: BP 120/67
== END 2020-07-18 14:18 | disposition home or self-care (01) ==
LOC: ER 11:27
DX: R51.9 Headache, unspecified (principal); R53.1 Weakness; J44.9 Chronic obstructive pulmonary disease, unspecified; F32.9 Major depressive disorder, single episode, unspecified; F41.9 Anxiety disorder, unspecified; G89.29 Other chronic pain; M19.90 Unspecified osteoarthritis, unspecified site; Z87.19 Personal history of other diseases of the digestive system; Z87.442 Personal history of urinary calculi; Z98.51 Tubal ligation status; Z79.899 Other long term (current) drug therapy; Z88.1 Allergy status to other antibiotic agents; Z88.6 Allergy status to analgesic agent; Z88.8 Allergy status to other drugs, medicaments and biological substances; Z98.890 Other specified postprocedural states
CPT/HCPCS: 82948; 99284

== ENCOUNTER 2020-07-21 12:13 | Emergency (ER) | payer MEDICARE, MEDICAID ==
[~2020-07-21] VITALS: Ht 154.9 cm; Wt 50.0 kg
[2020-07-21] MEDS ORDERED: TETanus/Pertussis (Acell)/Diphther VAC/PF (Tdap-Adult) 0.5ml syringe IMVAC ONE (13:15)
[2020-07-21 14:28] LABS: CLARITY,URINE CLOUDY (Clear); COLOR,URINE YELLOW (Yellow); GLUCOSE, URINE NEGATIVE (Neg); KETONES,URINE NEGATIVE (Neg); LEUKOCYTE ESTERASE ,URINE NEGATIVE (Neg); NITRITES, URINE POSITIVE (Neg); OCCULT BLOOD,URINE NEGATIVE (Neg); PROTEIN,URINE NEGATIVE (Neg); UA COLLECTION TYPE CLN CATCH MIDSTREAM; UROBILINOGEN,URINE 0.2 E.U/dL (0.2-1.0)
[2020-07-21 14:34] LABS: BACTERIA,URINE 4+ /HPF (Neg); SQUAMOUS EPITHELIAL CELL,UR MANY /LPF (FEW)
[2020-07-21 14:35] LABS: RBC,URINE 0-2 /HPF (0-2); WBC,URINE 0-4 /HPF (0-4)
[2020-07-21 14:36] LABS: WBC CLUMPS,URINE FEW /HPF (NEGATIVE)
[2020-07-21 15:00] VITALS: BP 98/64
== END 2020-07-21 15:32 | disposition home or self-care (01) ==
LOC: ER 12:13
DX: S00.01XA Abrasion of scalp, initial encounter (principal); M54.2 Cervicalgia; M25.561 Pain in right knee; M25.562 Pain in left knee; R42 Dizziness and giddiness; G43.909 Migraine, unspecified, not intractable, without status migrainosus; J44.9 Chronic obstructive pulmonary disease, unspecified; M19.90 Unspecified osteoarthritis, unspecified site; G89.29 Other chronic pain; F41.9 Anxiety disorder, unspecified; F32.9 Major depressive disorder, single episode, unspecified; Z86.69 Personal history of other diseases of the nervous system and sense organs; Z87.442 Personal history of urinary calculi; Z85.9 Personal history of malignant neoplasm, unspecified; Z90.89 Acquired absence of other organs; Z90.49 Acquired absence of other specified parts of digestive tract; Z90.710 Acquired absence of both cervix and uterus; Z98.51 Tubal ligation status; Z98.890 Other specified postprocedural states; Z60.2 Problems related to living alone; Z88.1 Allergy status to other antibiotic agents; Z88.8 Allergy status to other drugs, medicaments and biological substances; Z79.899 Other long term (current) drug therapy; W19.XXXA Unspecified fall, initial encounter; Y93.89 Activity, other specified; Y92.89 Other specified places as the place of occurrence of the external cause; Y99.8 Other external cause status
CPT/HCPCS: 70450; 72125; 73560; 81001; 90471; 90715; 99285

== ENCOUNTER 2020-09-09 17:01 | Emergency (ER) | payer MEDICARE, MEDICAID ==
[~2020-09-09] VITALS: Ht 154.9 cm; Wt 49.5 kg
--- NOTE | 2020-09-09 17:14 | NUR ---
PT C/O PAIN WITH PALPATION OVER C SPINE IN TRIAGE, MD NOTIFIED, NEW ORDERS
[2020-09-09] MEDS ORDERED: MECL-159 PO (19:15)
[2020-09-09] MEDS ORDERED: meclizine 12.5mg tablet PO ONE (19:25)
[2020-09-09 19:40] VITALS: BP 112/48
--- NOTE | 2020-09-09 19:42 | NUR ---
PT DISCHARGED BEFORE ASSESSED BY RN
== END 2020-09-09 19:42 | disposition home or self-care (01) ==
LOC: ER 17:01
DX: S09.90XA Unspecified injury of head, initial encounter (principal); M54.2 Cervicalgia; R42 Dizziness and giddiness; G43.909 Migraine, unspecified, not intractable, without status migrainosus; J44.9 Chronic obstructive pulmonary disease, unspecified; M19.90 Unspecified osteoarthritis, unspecified site; G89.29 Other chronic pain; F41.9 Anxiety disorder, unspecified; F32.9 Major depressive disorder, single episode, unspecified; Z86.69 Personal history of other diseases of the nervous system and sense organs; Z87.442 Personal history of urinary calculi; Z90.89 Acquired absence of other organs; Z90.49 Acquired absence of other specified parts of digestive tract; Z90.710 Acquired absence of both cervix and uterus; Z98.890 Other specified postprocedural states; Z98.51 Tubal ligation status; Z60.2 Problems related to living alone; Z88.1 Allergy status to other antibiotic agents; Z88.8 Allergy status to other drugs, medicaments and biological substances; Z79.899 Other long term (current) drug therapy; W19.XXXA Unspecified fall, initial encounter; Y93.89 Activity, other specified; Y92.89 Other specified places as the place of occurrence of the external cause; Y99.8 Other external cause status
CPT/HCPCS: 70450; 72125; 99285; J8597

== ENCOUNTER 2020-09-29 17:01 | Emergency (ER) | payer MEDICARE, MEDICAID ==
[~2020-09-29] VITALS: Ht 154.9 cm; Wt 107.0 kg
[2020-09-29 17:11] VITALS: BP 130/54
[2020-09-29] MEDS ORDERED: mag hydrox/Alum hydrox/simeth 30ml oral suspension PO ONE (17:35)
[2020-09-29] MEDS ORDERED: LIDOcaine Viscous 15ml cup MM ONE (17:35)
[2020-09-29] MEDS ORDERED: CLON0.252 PO (17:35)
[2020-09-29] MEDS ORDERED: famotidine 20mg tablet PO ONE (17:35)
[2020-09-29] MEDS ORDERED: LORA-269 PO (17:38)
--- NOTE | 2020-09-29 17:54 | NUR ---
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
== END 2020-09-29 17:57 | disposition home or self-care (01) ==
LOC: ER 17:02
DX: F32.9 Major depressive disorder, single episode, unspecified (principal); F41.9 Anxiety disorder, unspecified; G43.909 Migraine, unspecified, not intractable, without status migrainosus; J44.9 Chronic obstructive pulmonary disease, unspecified; M19.90 Unspecified osteoarthritis, unspecified site; G89.29 Other chronic pain; Z86.69 Personal history of other diseases of the nervous system and sense organs; Z87.442 Personal history of urinary calculi; Z90.89 Acquired absence of other organs; Z90.49 Acquired absence of other specified parts of digestive tract; Z90.710 Acquired absence of both cervix and uterus; Z98.890 Other specified postprocedural states; Z98.51 Tubal ligation status; Z60.2 Problems related to living alone; Z88.1 Allergy status to other antibiotic agents; Z88.8 Allergy status to other drugs, medicaments and biological substances; Z79.899 Other long term (current) drug therapy
CPT/HCPCS: 99284

== ENCOUNTER 2020-10-07 15:07 | Emergency (ER) | payer MEDICARE, MEDICAID ==
[~2020-10-07] VITALS: Ht 154.9 cm; Wt 49.1 kg
[~2020-10-07 15:07] MED LIST changes: +LORA-269 PO
[2020-10-07 15:16] VITALS: BP 110/46
[2020-10-07] MEDS ORDERED: LIDOcaine 5% patch TP STA (16:31)
[2020-10-07] MEDS ORDERED: DICL100G15 TOP (16:43)
[2020-10-07] MEDS ORDERED: ACET-2119 PO (16:43)
--- NOTE | 2020-10-07 16:53 | NUR ---
LIDOCAIN PATCHES PLACED TO PT BACK AND NECK. PT ABLE TO REMOVE SOFT COLLAR AND PLACE BOTH HANDS TO BACK OF NECK TO SHOW PLACEMENT. SHE WAS ALSO ABLE TO USE BOTH HANDS TO SHOW PLACEMENT TO LOW BACK. PT ABLE TO AMBULATE OUT OF WC TO CLOSE THE DOOR TO BED FT3 WITHOUT ANY C/O
== END 2020-10-07 16:57 | disposition home or self-care (01) ==
LOC: ER 15:08
DX: M54.2 Cervicalgia (principal); G89.29 Other chronic pain; M54.5 Low back pain; G43.909 Migraine, unspecified, not intractable, without status migrainosus; J44.9 Chronic obstructive pulmonary disease, unspecified; M19.90 Unspecified osteoarthritis, unspecified site; F41.9 Anxiety disorder, unspecified; F32.9 Major depressive disorder, single episode, unspecified; Z86.69 Personal history of other diseases of the nervous system and sense organs; Z87.442 Personal history of urinary calculi; Z85.9 Personal history of malignant neoplasm, unspecified; Z90.89 Acquired absence of other organs; Z90.49 Acquired absence of other specified parts of digestive tract; Z90.710 Acquired absence of both cervix and uterus; Z98.51 Tubal ligation status; Z98.890 Other specified postprocedural states; Z60.2 Problems related to living alone; Z88.1 Allergy status to other antibiotic agents; Z88.8 Allergy status to other drugs, medicaments and biological substances; Z79.899 Other long term (current) drug therapy
CPT/HCPCS: 99284

== ENCOUNTER 2020-10-23 16:53 | Inpatient (IN) | payer MEDICARE, MEDICAID ==
[~2020-10-23] VITALS: Ht 154.9 cm; Wt 52.5 kg
[~2020-10-23 16:53] MED LIST changes: -CLON-513 PO; +CLON1TAB95 PO; +DICL100G15 TOP
[2020-10-23] MEDS ORDERED: normal saline 1000ML IV soln IVB ONE (17:05)
[2020-10-23 17:17] LABS: EOSINOPHILS # (AUTO) 0.2 X10'3 (0-0.9); EOSINOPHILS % (AUTO) 3.5 % (0-6); HEMATOCRIT 33.9 % (35.0-45.0); HEMOGLOBIN 11.6 g/dl (12.0-16.0); LYMPHOCYTES # (AUTO) 1.3 X10'3 (1.1-4.8); MEAN CORPUSCULAR HGB CONC 34.1 g/dL (33.0-36.5); MEAN PLATELET VOLUME 7.5 FL (7.4-10.4); MONOCYTES # (AUTO) 0.3 X10'3 (0-0.9); MONOCYTES % (AUTO) 6.5 % (2-12); NEUTROPHILS # (AUTO) 2.6 X10'3 (1.8-7.7); PLATELET COUNT 174 X10'3 (140-440); RED BLOOD COUNT 3.61 X10'6 (4.20-5.60); WHITE BLOOD COUNT 4.3 X10'3 (4.5-11.0)
[2020-10-23 17:30] LABS: PARTIAL THROMBOPLASTIN TIME 22 SECONDS (22-32)
[2020-10-23 17:31] LABS: ALANINE AMINOTRANSFERASE 23 U/L (12-78); ALBUMIN 3.4 G/DL (3.4-5.0); ALKALINE PHOSPHATASE 79 IU/L (46-116); ANION GAP 12 (8-16); ASPARTATE AMINO TRANSFERASE 18 U/L (10-37); BILIRUBIN,TOTAL 0.3 MG/DL (0.1-1.0); BLOOD UREA NITROGEN 22 MG/DL (7-18); BUN/CREATININE RATIO 22.4 (6.6-38.0); CHLORIDE 110 MMOL/L (99-107); CREATININE 0.98 MG/DL (0.40-0.90); GLUCOSE 93 MG/DL (70-104); POTASSIUM 4.1 MMOL/L (3.5-5.1); SODIUM 146 MMOL/L (135-145); TOTAL CARBON DIOXIDE 23.9 MMOL/L (24-32); TOTAL PROTEIN 6.8 G/DL (6.4-8.2); eGFR 57 ML/MIN
--- NOTE | 2020-10-23 18:35 | NUR ---
Patient lying in bed resting comfortably. Patient is alert and oriented x 4. patient BP is low and MD notified. Patient is denies light headedness, nausea at this time.
[2020-10-23] MEDS ORDERED: POTA8CAP20 PO (19:52)
[2020-10-23] MEDS ORDERED: DICY10CA88 PO (19:52)
[2020-10-23] MEDS ORDERED: OXYB5TAB16 PO ×2 (19:52→19:58)
[2020-10-23] MEDS ORDERED: BACL-11 PO (19:55)
[2020-10-23] MEDS ORDERED: CELE-80 PO (19:55)
[2020-10-23] MEDS ORDERED: DIPH-186 PO (19:56)
--- NOTE | 2020-10-23 21:04 | NUR ---
MD talking with patient and RN updated patient will be leaving AMA.
[2020-10-23] MEDS ORDERED: acetaminophen 1,000mg/100ml IV 100 ML IV ONE (21:10)
[2020-10-23] MEDS ORDERED: acetaminophen 1,000mg/100ml IV 100 ML IV PRN (21:35)
[2020-10-23] MEDS ORDERED: PEG 3350/Na sulf,bicarb,Cl/KCl oral sol 4 liter bottle PO ONE (22:00)
--- NOTE | 2020-10-23 22:20 | NUR ---
Patient stated she was going to leave AMA and IV d/c. Patient decided to stay and bowel prep to start. patient updated on plan of care, new IV placed, and patient refusing to drink entire bowel prep. RN informed patient to drink what she can.
[2020-10-23] MEDS ORDERED: acetaminophen 325mg tablet PO PRN (22:25)
[2020-10-23] MEDS: ringers solution, lacted 1,000 ML IV SCH (23:22)
[2020-10-23] MEDS: pantoprazole 40 MG vial IV SCH (23:22)
[2020-10-23 23:24] LABS: BASOPHILS % (AUTO) 0.6 % (0-1); EOSINOPHILS # (AUTO) 0.1 X10'3 (0-0.9); HEMATOCRIT 29.9 % (35.0-45.0); LYMPHOCYTES # (AUTO) 1.5 X10'3 (1.1-4.8); LYMPHOCYTES % (AUTO) 29.9 % (21-51); MEAN CORPUSCULAR HEMOGLOBIN 32.2 PG (27.0-31.0); MEAN CORPUSCULAR HGB CONC 33.6 g/dL (33.0-36.5); MEAN CORPUSCULAR VOLUME 96.1 FL (78-98); MEAN PLATELET VOLUME 7.5 FL (7.4-10.4); MONOCYTES # (AUTO) 0.3 X10'3 (0-0.9); MONOCYTES % (AUTO) 6.7 % (2-12); NEUTROPHILS # (AUTO) 2.9 X10'3 (1.8-7.7); NEUTROPHILS % (AUTO) 59.8 % (42-75); PLATELET COUNT 139 X10'3 (140-440); RED BLOOD COUNT 3.11 X10'6 (4.20-5.60); RED CELL DISTRIBUTION WIDTH 13.1 % (11.5-14.5); WHITE BLOOD COUNT 4.9 X10'3 (4.5-11.0)
[2020-10-24] VITALS (15 sets, daily range): BP systolic 97–123; BP diastolic 33–62
--- NOTE | 2020-10-24 01:00 | NUR ---
Patient has been sleeping all night. Patient is requesting night time seizure and sleep medication. patient is currently refusing to drink the bowel prep at this time stating it makes her nauseous. RN placed call to
[2020-10-24] MEDS: topiramate 100mg tablet PO SCH ×2 (01:58→07:10)
--- NOTE | 2020-10-24 02:09 | NUR ---
Patient lying in bed sleeping. Patient given medication. patient refusing to drink PO bowel prep and stated she would drink it when she can. Patient has drank approximatley 100 mL at this time at the best.
--- NOTE | 2020-10-24 03:47 | NUR ---
Report called to ZULMA Razo.
--- NOTE | 2020-10-24 04:15 | NUR ---
Patient in room CICU 2007. I have received report from Barbi MAYA and had the opportunity to ask questions and assume patient care.
[2020-10-24 04:39] LABS: URINE AMPHETAMINE SCREEN NEGATIVE (Neg); URINE BARBITUATE SCREEN POSITIVE (Neg); URINE BENZODIAZEPINES SCREEN NEGATIVE (Neg); URINE CANNABINOID SCREEN NEGATIVE (Neg); URINE COCAINE SCREEN NEGATIVE (Neg); URINE METHADONE SCREEN NEGATIVE (Neg); URINE OPIATE SCREEN NEGATIVE (Neg); URINE PHENCYCLIDINE SCREEN NEGATIVE (Neg)
[2020-10-24 05:04] LABS: CLARITY,URINE SLIGHTLY CLOUDY (Clear); COLOR,URINE YELLOW (Yellow); GLUCOSE, URINE NEGATIVE (Neg); KETONES,URINE NEGATIVE (Neg); LEUKOCYTE ESTERASE ,URINE NEGATIVE (Neg); NITRITES, URINE POSITIVE (Neg); OCCULT BLOOD,URINE NEGATIVE (Neg); PH,URINE 7.5 (4.8-8.0); PROTEIN,URINE NEGATIVE (Neg); UROBILINOGEN,URINE 0.2 E.U/dL (0.2-1.0)
[2020-10-24 05:07] LABS: UA COLLECTION TYPE STRAIGHT CATH
[2020-10-24 05:12] LABS: BACTERIA,URINE 4+ /HPF (Neg); MUCUS STRANDS NONE SEEN /LPF (Neg); RBC,URINE NONE SEEN /HPF (0-2); SQUAMOUS EPITHELIAL CELL,UR FEW /LPF (FEW); WBC,URINE 0-4 /HPF (0-4)
[2020-10-24 06:13] LABS: BASOPHILS % (AUTO) 0.7 % (0-1); EOSINOPHILS # (AUTO) 0.2 X10'3 (0-0.9); EOSINOPHILS % (AUTO) 3.9 % (0-6); LYMPHOCYTES # (AUTO) 1.8 X10'3 (1.1-4.8); LYMPHOCYTES % (AUTO) 37.8 % (21-51); MEAN CORPUSCULAR HEMOGLOBIN 32.1 PG (27.0-31.0); MEAN CORPUSCULAR HGB CONC 33.3 g/dL (33.0-36.5); MEAN CORPUSCULAR VOLUME 96.5 FL (78-98); MEAN PLATELET VOLUME 7.9 FL (7.4-10.4); MONOCYTES # (AUTO) 0.3 X10'3 (0-0.9); MONOCYTES % (AUTO) 6.4 % (2-12); NEUTROPHILS # (AUTO) 2.4 X10'3 (1.8-7.7); NEUTROPHILS % (AUTO) 51.2 % (42-75); PLATELET COUNT 139 X10'3 (140-440); RED BLOOD COUNT 3.11 X10'6 (4.20-5.60); WHITE BLOOD COUNT 4.6 X10'3 (4.5-11.0)
--- NOTE | 2020-10-24 06:15 | NUR ---
Problems reprioritized. Patient report given, questions answered & plan of care reviewed with Milo MAYA.
--- NOTE | 2020-10-24 06:50 | NUR ---
Patient in room CICU 2008. I have received report from Kuldeep and had the opportunity to ask questions and assume patient care. Assumed care with Dalia Ramirez
[2020-10-24] MEDS ORDERED: levoTHYROXINE 75mcg tablet PO SCH (07:00)
[2020-10-24] MEDS: pantoprazole 40 MG vial IV SCH (07:11)
[2020-10-24] MEDS: ringers solution, lacted 1,000 ML IV SCH ×2 (09:36→17:45)
[2020-10-24 09:49] LABS: BASOPHILS % (AUTO) 0.8 % (0-1); EOSINOPHILS # (AUTO) 0.2 X10'3 (0-0.9); EOSINOPHILS % (AUTO) 4.2 % (0-6); HEMATOCRIT 27.9 % (35.0-45.0); HEMOGLOBIN 9.4 g/dl (12.0-16.0); LYMPHOCYTES # (AUTO) 1.4 X10'3 (1.1-4.8); LYMPHOCYTES % (AUTO) 39.5 % (21-51); MEAN CORPUSCULAR HEMOGLOBIN 32.1 PG (27.0-31.0); MEAN CORPUSCULAR HGB CONC 33.6 g/dL (33.0-36.5); MEAN CORPUSCULAR VOLUME 95.6 FL (78-98); MEAN PLATELET VOLUME 7.8 FL (7.4-10.4); MONOCYTES # (AUTO) 0.3 X10'3 (0-0.9); MONOCYTES % (AUTO) 7.7 % (2-12); NEUTROPHILS # (AUTO) 1.7 X10'3 (1.8-7.7); NEUTROPHILS % (AUTO) 47.8 % (42-75); PLATELET COUNT 124 X10'3 (140-440); RED BLOOD COUNT 2.92 X10'6 (4.20-5.60); RED CELL DISTRIBUTION WIDTH 13.2 % (11.5-14.5); WHITE BLOOD COUNT 3.6 X10'3 (4.5-11.0)
[2020-10-24] MEDS ORDERED: pneumococcal 23-VAL P-sac vacc 25 mcg/0.5ml vial IMVAC ONE (10:00)
[2020-10-24] MEDS ORDERED: FURO20TA4 PO (10:03)
[2020-10-24] MEDS ORDERED: CALC600T15 PO (10:03)
[2020-10-24] MEDS ORDERED: ESTR20VI4 SQ (10:03)
[2020-10-24] MEDS ORDERED: FLUT1BLS12 IH (10:03)
[2020-10-24] MEDS ORDERED: BACL20TA8 PO (10:03)
[2020-10-24] MEDS ORDERED: ondansetron/PF 4mg/2ml inj IV PRN (10:25)
[2020-10-24] MEDS ORDERED: NITR0.4T51 SL (10:42)
[2020-10-24] MEDS ORDERED: CHOL20004 PO (10:42)
[2020-10-24] MEDS ORDERED: FAMO-49 PO (10:42)
[2020-10-24] MEDS ORDERED: PHEN30TA41 PO (10:42)
[2020-10-24] MEDS ORDERED: ONDA-103 PO (10:42)
[2020-10-24 10:47] LABS: ALBUMIN 2.8 G/DL (3.4-5.0); ANION GAP 8 (8-16); BLOOD UREA NITROGEN 17 MG/DL (7-18); BUN/CREATININE RATIO 22.7 (6.6-38.0); CHLORIDE 115 MMOL/L (99-107); CREATININE 0.75 MG/DL (0.40-0.90); GLUCOSE 77 MG/DL (70-104); POTASSIUM 3.6 MMOL/L (3.5-5.1); SODIUM 147 MMOL/L (135-145); TOTAL CARBON DIOXIDE 24.2 MMOL/L (24-32); eGFR 77 ML/MIN
--- NOTE | 2020-10-24 11:09 | NUR ---
Patient states that Golalirezaly makes her sick and that she would not be able to drink it without having Zofran on board. Order from Zofran obtained. 4 mg Zofran give IVP. Patient then encouraged to drink the prep for colonoscopy. Patient stated, "I'm sure I still won't be able to drink it because I will get sick, all of the GI doctors know this about me and that's why I normally get endoscopies." Patient also stated, "They won't do the scop unless I drink this but I won't be able to so I just want to tell the doctor that they should just do surgery". Patient educated that without knowing what is going on a surgery wouldn't be indicated. Patient stated, "well I don't know what else they are going to do because I can't drink that".
[2020-10-24] MEDS ORDERED: baclofen 10mg tablet PO PRN (11:10)
[2020-10-24] MEDS ORDERED: albuterol 2.5 MG/3 ML nebule NEB PRN (11:10)
[2020-10-24] MEDS ORDERED: nitroGLYCERIN 0.4mg SUBLingual tab SL PRN (11:10)
[2020-10-24] MEDS ORDERED: non-formulary drug (Ondansetron HCl 1 TAB) PO PRN (11:10)
[2020-10-24] MEDS ORDERED: phenobarbital 30mg tablet PO ONE (11:25)
[2020-10-24] MEDS ORDERED: normal saline 500ml IV soln 1,000 ML IV ONE (13:20)
[2020-10-24] MEDS ORDERED: LORazepam 2 mg/ml vial IV ONE (13:20)
[2020-10-24] MEDS ORDERED: ondansetron/PF 4mg/2ml inj IV ONE (13:20)
--- NOTE | 2020-10-24 15:00 | NUR ---
GI was consulted by Dr. Kapadia, patient still refusing to drink Golytely due to making her feel "sick". Patient given Zofran x2 and still states she is unable to drink the Golytely. Patient very resistant to plan of care.
--- NOTE | 2020-10-24 15:30 | NUR ---
Helena from patient experience in to talk to patient about issues involving patient's previous experiences here. Patient was able to voice her concerns and feel heard.
[2020-10-24 15:50] LABS: BASOPHILS % (AUTO) 0.7 % (0-1); EOSINOPHILS # (AUTO) 0.1 X10'3 (0-0.9); EOSINOPHILS % (AUTO) 2.3 % (0-6); HEMATOCRIT 30.7 % (35.0-45.0); HEMOGLOBIN 10.3 g/dl (12.0-16.0); LYMPHOCYTES # (AUTO) 1.4 X10'3 (1.1-4.8); LYMPHOCYTES % (AUTO) 36.9 % (21-51); MEAN CORPUSCULAR HEMOGLOBIN 32.3 PG (27.0-31.0); MEAN CORPUSCULAR HGB CONC 33.4 g/dL (33.0-36.5); MEAN CORPUSCULAR VOLUME 96.8 FL (78-98); MEAN PLATELET VOLUME 7.7 FL (7.4-10.4); MONOCYTES # (AUTO) 0.3 X10'3 (0-0.9); MONOCYTES % (AUTO) 6.7 % (2-12); NEUTROPHILS % (AUTO) 53.4 % (42-75); PLATELET COUNT 137 X10'3 (140-440); RED BLOOD COUNT 3.17 X10'6 (4.20-5.60); RED CELL DISTRIBUTION WIDTH 13.1 % (11.5-14.5); WHITE BLOOD COUNT 3.8 X10'3 (4.5-11.0)
--- NOTE | 2020-10-24 18:00 | NUR ---
Patient expressing concern about her cats being home and no one to take care of them. Patient was asked if she had any phone numbers in her cell phone to call in order to help her with her home needs. Patient stated that she does not have any phone numbers to call. Patient also stated that she would rather go home and take care of business and come back if she needs to. Patient stated it would work out better because she doesn't want to take the golytely anyway. Patient was educated about the risks involved if she were to leave AMA. Patient vocalized back the education provided regarding the risks, "I can fall, or bleed worse, or faint." Patient did not feel that it was realistic to think that could be a possibility. Dr. Kapadia notified. Risks reiterated with the patient and patient still wanted to leave AMA. Patient signed AMA form. Patient PIV removed with cannula intact, guaze place over with paper tape, bleeding controlled. Patient alert and oriented at this time. Patient called [employer] for ride. All belongings gathered for patient including back pack, service planner, purse, clothing, jewelry, denture, hearing aids, cell phone and walker.
--- NOTE | 2020-10-24 18:19 | NUR ---
1800- Agree with assessment as charted by Dalia. Patient continues to be non- compliant and now going AMA. Risks of leaving discussed with patient with patient repeating back risks and still wants to leave. AMA paperwork signed, made aware of patient leaving. patient making arrangements with [facility] to transport home .
--- NOTE | 2020-10-24 18:50 | NUR ---
Pt signed her AMA papers, educated on follow up care with a estate manager. Pt taken by wheelchair to front lobby and loaded into [facility] [employer] van with all of her belongings at 1844.
[2020-10-24] MEDS ORDERED: phenobarbital 30mg tablet PO SCH (20:00)
[2020-10-24] MEDS ORDERED: oxybutynin 5mg tablet PO SCH (20:00)
[2020-10-24] MEDS ORDERED: ciprofloxacin lact 400MG/200ML 200 ML IV SCH (20:00)
[2020-10-24] MEDS ORDERED: topiramate 100mg tablet PO SCH (20:00)
[2020-10-24] MEDS ORDERED: budesonide 0.5mg/2ml UD nebule IH SCH (20:00)
[2020-10-25] MEDS ORDERED: vitamin D (cholecalciferol) 1,000 unit tablet PO SCH (08:00)
[2020-10-25] MEDS ORDERED: furosemide 20MG tablet PO SCH (08:00)
[2020-10-25] MEDS ORDERED: non-formulary drug (Omeprazole Magnesium (Prilosec Otc) 1 TAB) PO SCH (08:00)
[2020-10-25] MEDS ORDERED: levoTHYROXINE 75mcg tablet PO SCH (08:00)
[2020-10-25] MEDS ORDERED: calcium carbonate 500mg tablet PO SCH (08:00)
[2020-10-25] MEDS ORDERED: famotidine 20mg tablet PO SCH (08:00)
== END 2020-10-24 18:35 | disposition left against medical advice (07) | DRG 378 ==
LOC: ER 16:54 → ED HOLD 21:18 → CICU 2S 10-24 04:27
PROVIDERS: ADMIT Internal Medicine; ATTEND Internal Medicine
PROC: 3E0234Z Introduction of Serum, Toxoid and Vaccine into Muscle, Percutaneous Approach (ICD-10-PCS; principal; 2020-10-24)
DX: K92.2 Gastrointestinal hemorrhage, unspecified (principal); D62 Acute posthemorrhagic anemia; E46 Unspecified protein-calorie malnutrition; N39.0 Urinary tract infection, site not specified; I95.9 Hypotension, unspecified; G89.4 Chronic pain syndrome; J44.9 Chronic obstructive pulmonary disease, unspecified; K21.9 Gastro-esophageal reflux disease without esophagitis; M79.7 Fibromyalgia; F32.9 Major depressive disorder, single episode, unspecified; F41.9 Anxiety disorder, unspecified; G43.909 Migraine, unspecified, not intractable, without status migrainosus; K44.9 Diaphragmatic hernia without obstruction or gangrene; Z53.29 Procedure and treatment not carried out because of patient's decision for other reasons; K62.3 Rectal prolapse; R63.4 Abnormal weight loss; Z60.2 Problems related to living alone; M19.90 Unspecified osteoarthritis, unspecified site; R15.9 Full incontinence of feces; R32 Unspecified urinary incontinence; Z87.442 Personal history of urinary calculi; Z90.49 Acquired absence of other specified parts of digestive tract; Z90.710 Acquired absence of both cervix and uterus; Z23 Encounter for immunization; Z88.8 Allergy status to other drugs, medicaments and biological substances; Z91.030 Bee allergy status; Z98.51 Tubal ligation status; Z98.49 Cataract extraction status, unspecified eye; Z79.899 Other long term (current) drug therapy; Z68.21 Body mass index [BMI] 21.0-21.9, adult
CPT/HCPCS: 36415; 71045; 74019; 80048; 80053; 80305; 81001; 85025; 85610; 85730; 86885; 86900; 86901; 87077; 87081; 87088; 87186; 90732; 93005; 94760; 99285; C9113; G0378; J2060; J2405; J7030; J7040; J7120

== ENCOUNTER 2020-12-20 16:31 | Emergency (ER) | payer MEDICARE, MEDICAID ==
[~2020-12-20] VITALS: Ht 154.9 cm; Wt 48.6 kg
[~2020-12-20 16:31] MED LIST changes: +BACL20TA8 PO; -CALC-336 PO; +CALC600T35 PO; +CELE-80 PO; +CHOL20004 PO; -CLON1TAB95 PO; -DEP5I IM; -DICL100G15 TOP; +DICY10CA88 PO; +DIPH-186 PO; +ESTR20VI4 SQ; +FAMO-49 PO; +FLUT1BLS12 IH; -FLUT1DIS20 INH; -FURO-150 PO; +FURO20TA4 PO; -LOPE2CAP PO; -LORA-269 PO; -MECL-159 PO; -MIRA50TA PO; -MORP30TA PO; +NITR0.4T51 SL; +ONDA-103 PO; -ONDA4TAB6 PO; +OXYB5TAB16 PO; +POTA8CAP20 PO; -POTA8TAB8 PO; -VENL150T3 PO
[2020-12-20] MEDS ORDERED: normal saline 1000ml 1,000 ML IV ONE (18:00)
[2020-12-20] MEDS ORDERED: pantoprazole 40 MG vial IV ONE (18:00)
[2020-12-20] MEDS ORDERED: LORazepam 2 mg/ml vial IV ONE (18:00)
[2020-12-20 18:35] LABS: ALANINE AMINOTRANSFERASE 23 U/L (12-78); ALBUMIN 3.7 G/DL (3.4-5.0); ALKALINE PHOSPHATASE 78 IU/L (46-116); ANION GAP 10 (8-16); ASPARTATE AMINO TRANSFERASE 24 U/L (10-37); BILIRUBIN,TOTAL 0.2 MG/DL (0.1-1.0); BLOOD UREA NITROGEN 22 MG/DL (7-18); BUN/CREATININE RATIO 21.8 (6.6-38.0); CALCIUM 8.8 MG/DL (8.5-10.1); CHLORIDE 106 MMOL/L (99-107); CREATININE 1.01 MG/DL (0.40-0.90); ETHANOL < 0.010 GM/DL (0.0-0.010); GLUCOSE 81 MG/DL (70-104); SODIUM 145 MMOL/L (135-145); TOTAL CARBON DIOXIDE 29.3 MMOL/L (24-32); TOTAL PROTEIN 7.4 G/DL (6.4-8.2); eGFR 55 ML/MIN
[2020-12-20 18:40] LABS: POTASSIUM 3.9 MMOL/L (3.5-5.1)
[2020-12-20 19:32] LABS: BASOPHILS % (AUTO) 0.6 % (0-1); EOSINOPHILS # (AUTO) 0.1 X10'3 (0-0.9); EOSINOPHILS % (AUTO) 2.1 % (0-6); HEMATOCRIT 35.4 % (35.0-45.0); HEMOGLOBIN 11.8 g/dl (12.0-16.0); LYMPHOCYTES # (AUTO) 1.6 X10'3 (1.1-4.8); LYMPHOCYTES % (AUTO) 37.6 % (21-51); MEAN CORPUSCULAR HEMOGLOBIN 31.7 PG (27.0-31.0); MEAN CORPUSCULAR HGB CONC 33.4 g/dL (33.0-36.5); MEAN CORPUSCULAR VOLUME 94.7 FL (78-98); MEAN PLATELET VOLUME 7.5 FL (7.4-10.4); MONOCYTES # (AUTO) 0.4 X10'3 (0-0.9); MONOCYTES % (AUTO) 9.1 % (2-12); NEUTROPHILS # (AUTO) 2.2 X10'3 (1.8-7.7); NEUTROPHILS % (AUTO) 50.6 % (42-75); PLATELET COUNT 140 X10'3 (140-440); RED BLOOD COUNT 3.73 X10'6 (4.20-5.60); RED CELL DISTRIBUTION WIDTH 13.1 % (11.5-14.5); WHITE BLOOD COUNT 4.4 X10'3 (4.5-11.0)
[2020-12-20] MEDS ORDERED: ondansetron/PF 4mg/2ml inj IV ONE (19:50)
[2020-12-20] MEDS ORDERED: morphine 4 MG/ML inj SYRINge IV ONE (19:50)
--- NOTE | 2020-12-20 20:30 | NUR ---
Patient sleeping comfortably on gurney, just rec'd Morphine and Zofran.
--- NOTE | 2020-12-20 20:39 | NUR ---
Patient awake and asked to speak with MD.
--- NOTE | 2020-12-20 21:02 | NUR ---
PT BROUGHT TO ER OVERFLOW ACCOMPANIED BY STAFF. PT IS CHANGED INTO GREEN SCRUBS. PT ASSISTED IN THE BATHROOM AND HOOKED BACK UP TO HER IV FLUIDS.
[2020-12-20 21:18] LABS: CLARITY,URINE SLIGHTLY CLOUDY (Clear); COLOR,URINE YELLOW (Yellow); GLUCOSE, URINE NEGATIVE (Neg); KETONES,URINE NEGATIVE (Neg); LEUKOCYTE ESTERASE ,URINE NEGATIVE (Neg); NITRITES, URINE POSITIVE (Neg); OCCULT BLOOD,URINE NEGATIVE (Neg); PROTEIN,URINE NEGATIVE (Neg); UROBILINOGEN,URINE 0.2 E.U/dL (0.2-1.0)
[2020-12-20 21:20] LABS: UA COLLECTION TYPE CLN CATCH MIDSTREAM
[2020-12-20] MEDS ORDERED: diphenoxylate/atropine tablet (Lomotil) PO PRN (21:30)
[2020-12-20] MEDS ORDERED: dicyclomine 10 MG capsule PO PRN (21:30)
[2020-12-20 21:33] LABS: URINE AMPHETAMINE SCREEN NEGATIVE (Neg); URINE BARBITUATE SCREEN POSITIVE (Neg); URINE BENZODIAZEPINES SCREEN NEGATIVE (Neg); URINE CANNABINOID SCREEN NEGATIVE (Neg); URINE COCAINE SCREEN NEGATIVE (Neg); URINE METHADONE SCREEN NEGATIVE (Neg); URINE OPIATE SCREEN POSITIVE (Neg); URINE PHENCYCLIDINE SCREEN NEGATIVE (Neg)
[2020-12-20 21:38] LABS: WBC,URINE 0-4 /HPF (0-4)
[2020-12-20 21:39] LABS: BACTERIA,URINE 4+ /HPF (Neg); RBC,URINE NONE SEEN /HPF (0-2); SQUAMOUS EPITHELIAL CELL,UR FEW /LPF (FEW)
--- NOTE | 2020-12-20 21:42 | NUR ---
PTS IV INFILTRATED, PAINFUL AND COOL TO THE TOUCH. IV TAKEN OUT.
--- NOTE | 2020-12-20 21:43 | NUR ---
TIFFANY REPORT CALLED IN TO ANTHONY PT REPORTING TO WANTS TO KILL HER MOTHER JULIET WISEMAN AND SISTER LATESHA GOLDMAN. "I TOLD THEM IF I HAD A GUN I WOULD DO IT."
[2020-12-20] MEDS ORDERED: albuterol 2.5 MG/3 ML nebule NEB PRN (21:45)
--- NOTE | 2020-12-20 22:02 | NUR ---
PT STANDS UP AND SAYS "I AM LEAVING THIS PLACE YOU ARENT TREATING ME." [employer] OFFICER EXPLAINS THAT SHE HAS BEEN PLACED ON A 1799 FOR THREATENING TO KILL HERSELF AND THREATENING TO KILL HER MOTHER AND SISTER AND HAS TO STAY IN THE HOSPITAL IN ORDER TO BE ELAVULATED BY [facility]. PT STATES, "YOU AREN'T TREATING MY PAIN! I AM LEAVING!" [employer] OFFICER REMINDS HER SHE GOT MORPHINE 1 HOUR AGO AND SHE STATES SHE NEEDS MORE. "THEY TOOK MY IV OUT AND I AM DEHYDRATED!" [employer] OFFICER ENCOURAGES PT TO DRINK THE WATER THAT IN NEXT TO HER BED.
--- NOTE | 2020-12-20 22:31 | NUR ---
OFFICER Adilene/ [id number] CALLED AND TOOK DOWN INFO ON TARASOFF REPORT.
[2020-12-20] MEDS ORDERED: ondansetron 4mg rapidly disintigrating tab PO PRN (22:40)
[2020-12-20] MEDS ORDERED: diphenhydrAMINE 25mg capsule PO SCH (23:44)
[2020-12-20] MEDS ORDERED: budesonide 0.5mg/2ml UD nebule IH SCH (23:44)
[2020-12-20] MEDS ORDERED: traZODone 50mg tablet PO SCH (23:46)
[2020-12-21] MEDS: oxybutynin 5mg tablet PO SCH ×2 (00:20→08:41)
[2020-12-21] MEDS: potassium chloride 8mEq ER tablet PO SCH ×2 (00:20→08:41)
[2020-12-21] MEDS: topiramate 100mg tablet PO SCH ×2 (00:21→08:41)
[2020-12-21] MEDS: phenobarbital 30mg tablet PO SCH ×2 (00:22→08:43)
--- NOTE | 2020-12-21 04:49 | NUR ---
PT SLEEPING ON L SIDE RR 14
--- NOTE | 2020-12-21 06:37 | NUR ---
Patient laying in bed sleeping semifowlers position. Respirations are even and unlabored.
[2020-12-21] MEDS ORDERED: pantoprazole 40mg Tablet.DR PO SCH (07:30)
[2020-12-21] MEDS ORDERED: albuterol 2.5 MG/3 ML nebule NEB SCH (08:00)
[2020-12-21] MEDS ORDERED: docusate sod 250mg capsule PO SCH (08:00)
[2020-12-21] MEDS ORDERED: furosemide 20MG tablet PO SCH (08:00)
[2020-12-21] MEDS ORDERED: phenobarbital 30mg tablet PO SCH (08:00)
[2020-12-21] MEDS ORDERED: famotidine 20mg tablet PO SCH (08:00)
[2020-12-21] MEDS ORDERED: celeCOXIB 100mg capsule PO SCH (08:00)
--- NOTE | 2020-12-21 09:23 | NUR ---
FAXED PACKET [facility]
--- NOTE | 2020-12-21 09:52 | NUR ---
Patient laying in bed gently crying. Attempted to console pt, but patient will not talk. She said "get me out of here". Patient continues to cry. Will continue to monitor.
--- NOTE | 2020-12-21 09:58 | NUR ---
Patient up to the bathroom. Verbalizes that she just wants to go home and be with her cats. Pt. states that she just came in for pain medication and she made statements due to the pain that she was in. Pt. denies SI.
--- NOTE | 2020-12-21 10:28 | NUR ---
Patient continues to cry softly. Caregiver called to check on patient and stated that she has two caregivers for 6 hours a day. Pt. does all her own IADL's. Caregiver had no reason to believe patient would harm herself. Pt. has bouts of abdominal pain, and that is why she came in. Patient is stating that she wants to go home and be with her cats.
--- NOTE | 2020-12-21 10:31 | NUR ---
Caregivers are: Bekah Meade [phone]. Steven [phone]
--- NOTE | 2020-12-21 10:52 | NUR ---
Patient upset and yelling at staff, stating that noone at [facility] or [facility] care about patient's. Patient states that she wants to go home, although patient put a pillow case around head and staff x 2 had to physically remove pillowcase from churn operator margarine. Pt. verbalizing SI as attention seeking tool.
[2020-12-21] MEDS: albuterol 2.5 MG/3 ML nebule NEB SCH ×2 (11:00→15:00)
--- NOTE | 2020-12-21 11:51 | NUR ---
Patient laying on right side sleeping. Respirations are even and unlabored. No further escalations with patient.
--- NOTE | 2020-12-21 13:27 | NUR ---
Patient laying in bed. Patient's lunch is sitting next to her. Pt. did not eat breakfast or drink any fluids. Encouraged pt to eat lunch, patient stated "I'm not going to eat or drink anything, I'm going to starve myself to , I just want to go home."
--- NOTE | 2020-12-21 13:57 | NUR ---
Patient ate 25% of her lunch. Pt. states that if she eats too much her stomach starts to cramp.
--- NOTE | 2020-12-21 15:06 | NUR ---
[facility] at bedside speaking with patient at this time. Patient's hearing aids in place, tearful but cooperative at this time.
--- NOTE | 2020-12-21 16:34 | NUR ---
Patient is getting ready to discharge. Julio was called and patient is getting dressed. Patient talked to before discharge and had all her concerns addressed.
[2020-12-21 17:03] VITALS: BP 90/34
--- NOTE | 2020-12-23 11:50 | NUR ---
Dr. Olmos called patient regarding need for abx for UTI, patient educated regarding antibiotic for nitrofurantoin by Dr. Olmos patient stated that she would like prescription to be [facility] [address] [facility]. Called in prescription at 1140 for Nitrofurantoin 100 mg PO BID x5 days for total of 10 tablets.
== END 2020-12-21 17:07 | disposition home or self-care (01) ==
LOC: ER 16:32
DX: R45.851 Suicidal ideations (principal); R10.13 Epigastric pain; R11.2 Nausea with vomiting, unspecified; G43.909 Migraine, unspecified, not intractable, without status migrainosus; J44.9 Chronic obstructive pulmonary disease, unspecified; M19.90 Unspecified osteoarthritis, unspecified site; G89.29 Other chronic pain; F41.9 Anxiety disorder, unspecified; F32.9 Major depressive disorder, single episode, unspecified; Z87.442 Personal history of urinary calculi; Z90.49 Acquired absence of other specified parts of digestive tract; Z90.710 Acquired absence of both cervix and uterus; Z98.51 Tubal ligation status; Z98.890 Other specified postprocedural states; Z60.2 Problems related to living alone; Z88.8 Allergy status to other drugs, medicaments and biological substances; Z88.1 Allergy status to other antibiotic agents; Z79.899 Other long term (current) drug therapy
CPT/HCPCS: 36415; 80053; 80305; 80320; 81001; 84443; 85025; 87077; 87088; 87186; 94640; 96361; 96374; 96375; 99285; C9113; J2060; J2270; J2405; J7030; Q0163; 94760; J7626

== ENCOUNTER 2021-01-04 20:25 | Emergency (ER) | payer MEDICARE, MEDICAID ==
[~2021-01-04] VITALS: Ht 154.9 cm; Wt 48.6 kg
[2021-01-04 22:22] LABS: BASOPHILS % (AUTO) 0.6 % (0-1); EOSINOPHILS # (AUTO) 0.2 X10'3 (0-0.9); EOSINOPHILS % (AUTO) 3.9 % (0-6); HEMATOCRIT 32.5 % (35.0-45.0); HEMOGLOBIN 10.9 g/dl (12.0-16.0); LYMPHOCYTES # (AUTO) 1.7 X10'3 (1.1-4.8); LYMPHOCYTES % (AUTO) 28.2 % (21-51); MEAN CORPUSCULAR HEMOGLOBIN 31.4 PG (27.0-31.0); MEAN CORPUSCULAR HGB CONC 33.7 g/dL (33.0-36.5); MEAN CORPUSCULAR VOLUME 93.2 FL (78-98); MONOCYTES # (AUTO) 0.5 X10'3 (0-0.9); MONOCYTES % (AUTO) 7.9 % (2-12); NEUTROPHILS # (AUTO) 3.6 X10'3 (1.8-7.7); NEUTROPHILS % (AUTO) 59.4 % (42-75); PLATELET COUNT 157 X10'3 (140-440); RED BLOOD COUNT 3.48 X10'6 (4.20-5.60); RED CELL DISTRIBUTION WIDTH 13.1 % (11.5-14.5)
[2021-01-04 22:32] LABS: ALANINE AMINOTRANSFERASE 12 U/L (12-78); ALBUMIN 3.1 G/DL (3.4-5.0); ALBUMIN/GLOBULIN RATIO 0.9 (1.1-1.5); ALKALINE PHOSPHATASE 84 IU/L (46-116); ANION GAP 8 (8-16); ASPARTATE AMINO TRANSFERASE 11 U/L (10-37); BILIRUBIN,TOTAL 0.2 MG/DL (0.1-1.0); BLOOD UREA NITROGEN 19 MG/DL (7-18); BUN/CREATININE RATIO 16.1 (6.6-38.0); CALCIUM 8.7 MG/DL (8.5-10.1); CHLORIDE 106 MMOL/L (99-107); CREATININE 1.18 MG/DL (0.40-0.90); GLUCOSE 96 MG/DL (70-104); LIPASE 66 U/L (73-393); POTASSIUM 3.6 MMOL/L (3.5-5.1); SODIUM 143 MMOL/L (135-145); TOTAL CARBON DIOXIDE 28.7 MMOL/L (24-32); TOTAL PROTEIN 6.7 G/DL (6.4-8.2); eGFR 46 ML/MIN
[2021-01-04] MEDS ORDERED: normal saline 1000ML IV soln IVB ONE ×2 (22:55)
[2021-01-04] MEDS ORDERED: ketorolac tromethamine 15mg/ml inj. IV ONE (22:55)
[2021-01-04] MEDS ORDERED: iohexol 300mg/ml 100ml inj. ONE (23:02)
[2021-01-05] MEDS ORDERED: metroNIDAZOLE-Flagyl 500mg/NS 100 ML IV ONE (01:20)
[2021-01-05 01:22] LABS: CLARITY,URINE CLEAR (Clear); COLOR,URINE YELLOW (Yellow); GLUCOSE, URINE NEGATIVE (Neg); KETONES,URINE NEGATIVE (Neg); LEUKOCYTE ESTERASE ,URINE SMALL (Neg); NITRITES, URINE POSITIVE (Neg); OCCULT BLOOD,URINE NEGATIVE (Neg); PH,URINE 5.5 (4.8-8.0); PROTEIN,URINE NEGATIVE (Neg); UROBILINOGEN,URINE 0.2 E.U/dL (0.2-1.0)
[2021-01-05 01:36] LABS: UA COLLECTION TYPE STRAIGHT CATH
[2021-01-05 01:37] LABS: WBC,URINE 0-4 /HPF (0-4)
[2021-01-05 01:38] LABS: BACTERIA,URINE 4+ /HPF (Neg); RBC,URINE NONE SEEN /HPF (0-2); SQUAMOUS EPITHELIAL CELL,UR FEW /LPF (FEW)
[2021-01-05 02:51] LABS: ETHANOL < 0.010 GM/DL (0.0-0.010)
[2021-01-05] MEDS ORDERED: LORA-269 PO (04:14)
[2021-01-05] MEDS ORDERED: ADV50100 IH (04:14)
[2021-01-05] MEDS ORDERED: DIPH50CA46 PO (04:14)
[2021-01-05] MEDS ORDERED: MECL-226 PO (04:14)
[2021-01-05] MEDS ORDERED: CHOL20002 PO (04:20)
[2021-01-05 05:16] LABS: URINE AMPHETAMINE SCREEN NEGATIVE (Neg); URINE BARBITUATE SCREEN POSITIVE (Neg); URINE BENZODIAZEPINES SCREEN NEGATIVE (Neg); URINE CANNABINOID SCREEN NEGATIVE (Neg); URINE COCAINE SCREEN NEGATIVE (Neg); URINE METHADONE SCREEN NEGATIVE (Neg); URINE OPIATE SCREEN NEGATIVE (Neg); URINE PHENCYCLIDINE SCREEN NEGATIVE (Neg)
[2021-01-05] MEDS ORDERED: METR-159 PO (06:31)
[2021-01-05] MEDS ORDERED: CIPR100T3 PO (06:31)
[2021-01-05] MEDS ORDERED: ketorolac tromethamine 15mg/ml inj. IV ONE (06:45)
--- NOTE | 2021-01-05 06:45 | NUR ---
Discharge instructions reviewed, pt complaining of pain. Orders for toradol per Dr. Shepherd.
[2021-01-05 06:46] VITALS: BP 96/41
== END 2021-01-05 07:51 | disposition home or self-care (01) ==
LOC: ER 20:25
DX: R10.84 Generalized abdominal pain (principal); K52.9 Noninfective gastroenteritis and colitis, unspecified; G43.909 Migraine, unspecified, not intractable, without status migrainosus; J44.9 Chronic obstructive pulmonary disease, unspecified; M19.90 Unspecified osteoarthritis, unspecified site; G89.29 Other chronic pain; F41.9 Anxiety disorder, unspecified; F32.9 Major depressive disorder, single episode, unspecified; Z87.442 Personal history of urinary calculi; Z86.69 Personal history of other diseases of the nervous system and sense organs; Z85.9 Personal history of malignant neoplasm, unspecified; Z90.89 Acquired absence of other organs; Z90.49 Acquired absence of other specified parts of digestive tract; Z90.710 Acquired absence of both cervix and uterus; Z98.51 Tubal ligation status; Z98.890 Other specified postprocedural states; Z60.2 Problems related to living alone; Z88.1 Allergy status to other antibiotic agents; Z88.8 Allergy status to other drugs, medicaments and biological substances; Z79.899 Other long term (current) drug therapy
CPT/HCPCS: 36415; 74177; 80053; 80305; 80320; 81001; 83690; 85025; 87088; 96361; 96374; 96375; 99285; J1885; J3490; J7030; Q9967; 87186

== ENCOUNTER 2021-01-08 16:32 | Emergency (ER) | payer MEDICARE, MEDICAID ==
[~2021-01-08] VITALS: Ht 154.9 cm; Wt 49.1 kg
[~2021-01-08 16:32] MED LIST changes: +ADV50100 IH; -ALBU18HF2 INH; -BACL20TA8 PO; +CHOL20002 PO; -CHOL20004 PO; +CIPR100T3 PO; -DIPH25CA83 PO; +DIPH50CA46 PO; -DOCU250C15 PO; -FAMO-49 PO; -FLUT1BLS12 IH; +LORA-269 PO; +MECL-226 PO; +METR-159 PO; -ONDA-103 PO
[2021-01-08] MEDS ORDERED: morphine 4 MG/ML inj SYRINge IV ONE (17:25)
[2021-01-08] MEDS ORDERED: CefTRIAXone/D5W-Rocephin 1gm 50 ML IV ONE (17:25)
[2021-01-08] MEDS ORDERED: normal saline 1000ML IV soln IVB ONE (17:25)
[2021-01-08] MEDS ORDERED: proCHLORperazine 10 MG/2 ml inj IV ONE (17:55)
[2021-01-08] MEDS ORDERED: diphenhydrAMINE 50 mg/ml inj IV ONE (17:55)
[2021-01-08] MEDS ORDERED: CIPR-259 PO (18:35)
[2021-01-08 19:03] LABS: BASOPHILS % (AUTO) 0.8 % (0-1); EOSINOPHILS # (AUTO) 0.2 X10'3 (0-0.9); EOSINOPHILS % (AUTO) 3.9 % (0-6); HEMATOCRIT 30.1 % (35.0-45.0); HEMOGLOBIN 10.2 g/dl (12.0-16.0); LYMPHOCYTES # (AUTO) 1.3 X10'3 (1.1-4.8); LYMPHOCYTES % (AUTO) 25.1 % (21-51); MEAN CORPUSCULAR HEMOGLOBIN 31.7 PG (27.0-31.0); MEAN CORPUSCULAR HGB CONC 33.8 g/dL (33.0-36.5); MEAN CORPUSCULAR VOLUME 93.6 FL (78-98); MEAN PLATELET VOLUME 7.9 FL (7.4-10.4); MONOCYTES # (AUTO) 0.4 X10'3 (0-0.9); MONOCYTES % (AUTO) 8.3 % (2-12); NEUTROPHILS # (AUTO) 3.2 X10'3 (1.8-7.7); NEUTROPHILS % (AUTO) 61.9 % (42-75); PLATELET COUNT 151 X10'3 (140-440); RED BLOOD COUNT 3.22 X10'6 (4.20-5.60); RED CELL DISTRIBUTION WIDTH 13.4 % (11.5-14.5); WHITE BLOOD COUNT 5.2 X10'3 (4.5-11.0)
[2021-01-08 19:14] LABS: ALANINE AMINOTRANSFERASE 15 U/L (12-78); ALBUMIN 2.6 G/DL (3.4-5.0); ALBUMIN/GLOBULIN RATIO 0.9 (1.1-1.5); ALKALINE PHOSPHATASE 63 IU/L (46-116); ANION GAP 6 (8-16); ASPARTATE AMINO TRANSFERASE 20 U/L (10-37); BILIRUBIN,TOTAL 0.1 MG/DL (0.1-1.0); BLOOD UREA NITROGEN 14 MG/DL (7-18); BUN/CREATININE RATIO 15.2 (6.6-38.0); CALCIUM 7.8 MG/DL (8.5-10.1); CHLORIDE 113 MMOL/L (99-107); CREATININE 0.92 MG/DL (0.40-0.90); GLUCOSE 84 MG/DL (70-104); SODIUM 144 MMOL/L (135-145); TOTAL CARBON DIOXIDE 24.6 MMOL/L (24-32); TOTAL PROTEIN 5.5 G/DL (6.4-8.2); eGFR 61 ML/MIN
[2021-01-08] MEDS ORDERED: ONDA4TAB12 PO (19:25)
[2021-01-08] MEDS ORDERED: ondansetron/PF 4mg/2ml inj IV ONE (19:25)
[2021-01-08 19:50] VITALS: BP 100/78
== END 2021-01-08 19:53 | disposition home or self-care (01) ==
LOC: ER 16:33
DX: N39.0 Urinary tract infection, site not specified (principal); K52.9 Noninfective gastroenteritis and colitis, unspecified; G43.909 Migraine, unspecified, not intractable, without status migrainosus; G89.29 Other chronic pain; M19.90 Unspecified osteoarthritis, unspecified site; J44.9 Chronic obstructive pulmonary disease, unspecified; M79.7 Fibromyalgia; Z87.442 Personal history of urinary calculi; Z98.51 Tubal ligation status; Z90.89 Acquired absence of other organs; Z90.49 Acquired absence of other specified parts of digestive tract; Z88.2 Allergy status to sulfonamides; Z88.6 Allergy status to analgesic agent; Z88.8 Allergy status to other drugs, medicaments and biological substances; Z91.048 Other nonmedicinal substance allergy status; Z79.2 Long term (current) use of antibiotics; Z79.899 Other long term (current) drug therapy
CPT/HCPCS: 36415; 80053; 85025; 96365; 96375; 99284; J0696; J0780; J1200; J2270; J2405; J7030

== ENCOUNTER 2022-04-15 15:28 | Emergency (ER) | payer MEDICARE, MEDICAID ==
[~2022-04-15] VITALS: Ht 154.9 cm; Wt 58.6 kg
[~2022-04-15 15:28] MED LIST changes: +DIPH-907 PO; -DIPH50CA46 PO; -ESTR20VI4 SQ; +ESTR20VI7 SQ; -METR-159 PO; +ONDA4TAB12 PO; -PHEN30TA41 PO; +PHEN30TA49 PO
[2022-04-15 16:22] LABS: BASOPHILS % (AUTO) 0.6 % (0-1); EOSINOPHILS # (AUTO) 0.8 X10'3 (0-0.9); EOSINOPHILS % (AUTO) 12.5 % (0-6); HEMATOCRIT 35.4 % (35.0-45.0); HEMOGLOBIN 11.8 g/dl (12.0-16.0); LYMPHOCYTES # (AUTO) 1.6 X10'3 (1.1-4.8); LYMPHOCYTES % (AUTO) 25.9 % (21-51); MEAN CORPUSCULAR HEMOGLOBIN 30.3 PG (27.0-31.0); MEAN CORPUSCULAR HGB CONC 33.3 g/dL (33.0-36.5); MEAN CORPUSCULAR VOLUME 90.9 FL (78-98); MEAN PLATELET VOLUME 7.6 FL (7.4-10.4); MONOCYTES # (AUTO) 0.4 X10'3 (0-0.9); MONOCYTES % (AUTO) 6.6 % (2-12); NEUTROPHILS # (AUTO) 3.4 X10'3 (1.8-7.7); NEUTROPHILS % (AUTO) 54.4 % (42-75); PLATELET COUNT 193 X10'3 (140-440); RED BLOOD COUNT 3.89 X10'6 (4.20-5.60); RED CELL DISTRIBUTION WIDTH 16.4 % (11.5-14.5); WHITE BLOOD COUNT 6.3 X10'3 (4.5-11.0)
[2022-04-15 16:50] LABS: ALANINE AMINOTRANSFERASE 41 U/L (12-78); ALBUMIN 2.8 G/DL (3.4-5.0); ALBUMIN/GLOBULIN RATIO 0.6 (1.1-1.5); ALKALINE PHOSPHATASE 162 IU/L (46-116); ANION GAP 9 (8-16); ASPARTATE AMINO TRANSFERASE 30 U/L (10-37); BILIRUBIN,TOTAL 0.1 MG/DL (0.1-1.0); BLOOD UREA NITROGEN 13 MG/DL (7-18); BUN/CREATININE RATIO 12.5 (6.6-38.0); CALCIUM 8.2 MG/DL (8.5-10.1); CHLORIDE 107 MMOL/L (99-107); CREATINE KINASE 57 U/L (26-192); CREATININE 1.04 MG/DL (0.40-0.90); GLUCOSE 121 MG/DL (70-104); POTASSIUM 3.7 MMOL/L (3.5-5.1); SODIUM 141 MMOL/L (135-145); TOTAL CARBON DIOXIDE 25.2 MMOL/L (24-32); TOTAL PROTEIN 7.4 G/DL (6.4-8.2); eGFR 53 ML/MIN
[2022-04-15 17:00] VITALS: BP 114/72
[2022-04-15 18:14] LABS: COLOR,URINE YELLOW (Yellow); GLUCOSE, URINE NEGATIVE (Neg); KETONES,URINE NEGATIVE (Neg); LEUKOCYTE ESTERASE ,URINE TRACE (Neg); NITRITES, URINE NEGATIVE (Neg); OCCULT BLOOD,URINE MODERATE (Neg); PH,URINE 6.5 (4.8-8.0); PROTEIN,URINE NEGATIVE (Neg); UROBILINOGEN,URINE 0.2 E.U/dL (0.2-1.0)
[2022-04-15 18:19] LABS: UA COLLECTION TYPE CLN CATCH MIDSTREAM
[2022-04-15 18:20] LABS: BACTERIA,URINE 1+ /HPF (Neg); CLARITY,URINE SLIGHTLY CLOUDY (Clear); RBC,URINE 0-2 /HPF (0-2); SQUAMOUS EPITHELIAL CELL,UR FEW /LPF (FEW); WBC,URINE 0-4 /HPF (0-4)
[2022-04-18] MEDS ORDERED: NITR100C6 PO (11:53)
--- NOTE | 2022-04-18 14:39 | NUR ---
PT CALLED REGARDING LAB WORK DONE ON 04/15/22, PT WAS INFORMED THAT SHE HAS A UTI AND THAT MACROBID 100MG; 1 TAB PO BID x7 DAYS WITH NO REFILLS WAS CALLED INTO [facility]. PT INFORMED THAT IF SHE IS NOT FEELING ANY BETTER IN A FEW DAYS TO F/U WITH PMD OR RETURN TO THE ER NEEDED.
== END 2022-04-15 18:10 | disposition home or self-care (01) ==
LOC: ER 15:29
DX: R41.82 Altered mental status, unspecified (principal); R56.9 Unspecified convulsions; R53.1 Weakness; R11.0 Nausea; H53.2 Diplopia; G43.909 Migraine, unspecified, not intractable, without status migrainosus; J44.9 Chronic obstructive pulmonary disease, unspecified; M19.90 Unspecified osteoarthritis, unspecified site; G89.29 Other chronic pain; F41.9 Anxiety disorder, unspecified; F32.A Depression, unspecified; Z86.69 Personal history of other diseases of the nervous system and sense organs; Z87.442 Personal history of urinary calculi; Z85.9 Personal history of malignant neoplasm, unspecified; Z90.89 Acquired absence of other organs; Z90.49 Acquired absence of other specified parts of digestive tract; Z90.710 Acquired absence of both cervix and uterus; Z98.890 Other specified postprocedural states; Z98.51 Tubal ligation status; Z60.2 Problems related to living alone; Z88.1 Allergy status to other antibiotic agents; Z88.8 Allergy status to other drugs, medicaments and biological substances; Z79.899 Other long term (current) drug therapy
CPT/HCPCS: 36415; 70450; 80053; 81001; 82550; 84145; 85025; 87077; 87088; 87186; 99284